=== PATIENT | male | born 1985 | race Caucasian/White ===

== ENCOUNTER 2019-03-01 02:06 | Observation (INO) | payer OTHER ==
[2019-03-01] VITALS (10 sets, daily range): BP systolic 109–128; BP diastolic 72–91
[~2019-03-01 02:06] MED LIST: DIPH-1 PO; NO MEDS; ONDA8TAB98 PO; PER PO
[2019-03-01] MEDS ORDERED: MULT1CAP59 PO (02:17)
--- NOTE | 2019-03-01 02:19 | ER Report ---
History and Physical Time Seen By MD: 02:19 Hx. of Stated Complaint: PATIENT HAVING PAIN IN LEFT LOWER QUADRANT, FEELS LIKE THE LAST TIME HE HAD A BOWEL OBSTRUCTION. PATIENT DENIES ANY N/V/D. HPI/ROS CHIEF COMPLAINT: left lower abdominal pain. HISTORY OF PRESENT ILLNESS: This is a 34 year old male. He has onset of left lower abdominal pain tonight. Feels like when he has had an obstruction with volvulus in the past. Has had this many times since a teenager. Has had it endoscopic reversed in the past, and then later had surgery here with sigmoidectomy and sounds like a cecectomy as well, Dr. Fuller in 2011. Has a bout 4 bowel movements daily, the last 24 hours has been reduced. No nausea or vomiting. The pain is colicky and comes and goes. Nothing makes it worse or better. Denies dysuria or trouble with urination. No fevers or chills noted. Some pain into the left lower back area. When the pain does come on it is severe, rated about 7 on 1-10 scale. Allergies: Coded Allergies: No Known Drug Allergies (Unverified , 03/01/19) Home Meds Reported Medications Multivitamin (MULTIVITAMINS) 1 Each Capsule, 1 EACH PO QDAY, CAPSULE 03/01/19 Discontinued Reported Medications [No Meds] No Conflict Check 12/02/11 Discontinued Scripts Diphenoxylate Hcl/Atropine (LOMOTIL TABLET) 1 Each Tablet, 1 EACH PO Q8H, #10 Prov:VITALY GUTIERRES DO 03/01/14 Ondansetron (ONDANSETRON ODT) 8 Mg Tab.rapdis, 8 MG PO Q12H, #10 Prov:VITALY GUTIERRES DO 03/01/14 Reviewed Nurses Notes: Yes Hx Smoking: No Smoking Status: Never Smoker Hx Substance Use Disorder: No Hx Alcohol Use: Yes (OCC) Constitutional Vital Sign - Last 24 Hours 03/01/19 03/01/19 03/01/19 03/01/19 02:10 02:14 02:21 02:30 Temp 98.2 Pulse 95 83 Resp 24 B/P (MAP) 130/93 130/93 (105) 129/90 (103) Pulse Ox 93 96 O2 Delivery Room Air 03/01/19 03/01/19 03/01/19 03/01/19 02:36 02:52 03:00 03:06 Pulse 79 79 B/P (MAP) 132/90 (104) 121/91 (101) Pulse Ox 91 89 03/01/19 03/01/19 03/01/19 03/01/19 03:30 03:36 03:51 03:56 Pulse 73 87 89 B/P (MAP) 113/64 (80) Pulse Ox 92 91 94 03/01/19 03/01/19 03/01/19 03/01/19 04:00 04:11 04:26 04:30 Pulse 92 94 B/P (MAP) 126/75 (92) 122/84 (97) Pulse Ox 88 87 03/01/19 04:41 Pulse 96 Pulse Ox 94 l Intake and Output 02/28/19 02/28/19 03/01/19 15:00 23:00 07:00 Intake Total 1000 ml Balance 1000 ml Physical Exam General Appearance: The patient is alert. No acute distress. Eyes: Pupils are equal, round. No pallor, injection or icterus. ENT: Mucous membranes are moist. Respiratory: Lungs are clear to auscultation. Cardiovascular: Regular rate and rhythm. No murmurs, gallops or rubs. Gastrointestinal: Abdomen is soft, minimal pain with percussion, not able to reproduce the pain. Nondistended. hypoactive bowel sounds on my exam. No costovertebral angle tenderness with percussion. Neurological: Alert and oriented x3. Skin: Warm and dry. Musculoskeletal: No tenderness in palpation of the back and area around lumbar spine. DIFFERENTIAL DIAGNOSIS: After history and physical exam, differential diagnosis was considered for a patient with left lower abdominal pain that could be recurrent volvulus versus other inflammatory condition of the bowels such as colitis or enteritis, or could be urinary tract related such as infection or kidney stone Medical Decision Making Data Points Result Diagram: 03/01/19 0214 03/01/19 021 Laboratory Hematology Test 03/01/19 02:09 03/01/19 02:14 03/01/19 03:58 Urine Color Yellow Urine Clarity Clear Urine pH 6.0 pH (4.8-9.5) Urine Specific [place] 1.011 Urine Protein Negative mg/dL (NEGATIVE) Urine Glucose (UA) Negative mg/dL (NEGATIVE) Urine Ketones Negative mg/dL (NEGATIVE) Urine Blood Negative (NEGATIVE) Urine Nitrite Negative (NEGATIVE) Urine Bilirubin Negative (NEGATIVE) Urine Urobilinogen Negative mg/dL (0.2-1.9) Urine Leukocyte Esterase Negative (NEGATIVE) Urine RBC 1 /HPF (0-2/HPF) Urine WBC None /HPF (0-5/HPF) Urine Squamous Epithelial Cells None /LPF (</=FEW) Urine Bacteria Negative /HPF (NONE-FEW) Urine Mucus None /HPF (NONE-FEW) Red Blood Count 5.42 M/uL (4.00-5.60) Mean Corpuscular Volume 93.1 fL (80.0-96.0) Mean Corpuscular Hemoglobin 32.3 pg (26.0-33.0) Mean Corpuscular Hemoglobin Concent 34.6 g/dL (32.0-36.0) Red Cell Distribution Width 12.6 % (11.5-14.5) Mean Platelet Volume 7.0 fL (7.2-11.1) Neutrophils (%) (Auto) 69.7 % (39.4-72.5) Lymphocytes (%) (Auto) 22.0 % (17.6-49.6) Monocytes (%) (Auto) 6.8 % (4.1-12.4) Eosinophils (%) (Auto) 1.0 % (0.4-6.7) Basophils (%) (Auto) 0.5 % (0.3-1.4) Nucleated RBC Relative Count (auto) 0.0 /100WBC Neutrophils # (Auto) 6.3 K/uL (2.0-7.4) Lymphocytes # (Auto) 2.0 K/uL (1.3-3.6) Monocytes # (Auto) 0.6 K/uL (0.3-1.0) Eosinophils # (Auto) 0.1 K/uL (0.0-0.5) Basophils # (Auto) 0.0 K/uL (0.0-0.1) Nucleated RBC Absolute Count (auto) 0.00 K/uL Sodium Level 139 mmol/L (137-145) Potassium Level 3.9 mmol/L (3.5-5.0) Chloride Level 100 mmol/L (98-107) Carbon Dioxide Level 29 mmol/L (22-30) Blood Urea Nitrogen 12 mg/dl (9-21) Creatinine 1.10 mg/dl (0.66-1.25) Glomerular Filtration Rate Calc > 60.0 Random Glucose 98 mg/dl (75-110) Calcium Level 9.4 mg/dl (8.4-10.2) Total Bilirubin 1.4 mg/dl (0.2-1.3) Aspartate Amino Transf (AST/SGOT) 21 U/L (0-35) Alanine Aminotransferase (ALT/SGPT) 23 U/L (0-56) Alkaline Phosphatase 60 U/L (0-126) Total Protein 7.5 g/dl (6.3-8.2) Albumin 4.7 g/dl (3.5-5.0) Amylase Level 68 U/L (0-110) Lipase 172 U/L (23-300) Lactate 1.0 mmol/L (0.7-2.1) Chemistry Test 03/01/19 02:09 03/01/19 02:14 03/01/19 03:58 Urine Color Yellow Urine Clarity Clear Urine pH 6.0 pH (4.8-9.5) Urine Specific [place] 1.011 Urine Protein Negative mg/dL (NEGATIVE) Urine Glucose (UA) Negative mg/dL (NEGATIVE) Urine Ketones Negative mg/dL (NEGATIVE) Urine Blood Negative (NEGATIVE) Urine Nitrite Negative (NEGATIVE) Urine Bilirubin Negative (NEGATIVE) Urine Urobilinogen Negative mg/dL (0.2-1.9) Urine Leukocyte Esterase Negative (NEGATIVE) Urine RBC 1 /HPF (0-2/HPF) Urine WBC None /HPF (0-5/HPF) Urine Squamous Epithelial Cells None /LPF (</=FEW) Urine Bacteria Negative /HPF (NONE-FEW) Urine Mucus None /HPF (NONE-FEW) White Blood Count 9.0 k/uL (4.5-11.0) Red Blood Count 5.42 M/uL (4.00-5.60) Hemoglobin 17.5 g/dL (14.0-18.0) Hematocrit 50.5 % (42.0-52.0) Mean Corpuscular Volume 93.1 fL (80.0-96.0) Mean Corpuscular Hemoglobin 32.3 pg (26.0-33.0) Mean Corpuscular Hemoglobin Concent 34.6 g/dL (32.0-36.0) Red Cell Distribution Width 12.6 % (11.5-14.5) Platelet Count 282 K/uL (150-450) Mean Platelet Volume 7.0 fL (7.2-11.1) Neutrophils (%) (Auto) 69.7 % (39.4-72.5) Lymphocytes (%) (Auto) 22.0 % (17.6-49.6) Monocytes (%) (Auto) 6.8 % (4.1-12.4) Eosinophils (%) (Auto) 1.0 % (0.4-6.7) Basophils (%) (Auto) 0.5 % (0.3-1.4) Nucleated RBC Relative Count (auto) 0.0 /100WBC Neutrophils # (Auto) 6.3 K/uL (2.0-7.4) Lymphocytes # (Auto) 2.0 K/uL (1.3-3.6) Monocytes # (Auto) 0.6 K/uL (0.3-1.0) Eosinophils # (Auto) 0.1 K/uL (0.0-0.5) Basophils # (Auto) 0.0 K/uL (0.0-0.1) Nucleated RBC Absolute Count (auto) 0.00 K/uL Glomerular Filtration Rate Calc > 60.0 Calcium Level 9.4 mg/dl (8.4-10.2) Total Bilirubin 1.4 mg/dl (0.2-1.3) Aspartate Amino Transf (AST/SGOT) 21 U/L (0-35) Alanine Aminotransferase (ALT/SGPT) 23 U/L (0-56) Alkaline Phosphatase 60 U/L (0-126) Total Protein 7.5 g/dl (6.3-8.2) Albumin 4.7 g/dl (3.5-5.0) Amylase Level 68 U/L (0-110) Lipase 172 U/L (23-300) Lactate 1.0 mmol/L (0.7-2.1) Urinalysis Test 03/01/19 02:09 Urine Color Yellow Urine Clarity Clear Urine pH 6.0 pH (4.8-9.5) Urine Specific [place] 1.011 Urine Protein Negative mg/dL (NEGATIVE) Urine Glucose (UA) Negative mg/dL (NEGATIVE) Urine Ketones Negative mg/dL (NEGATIVE) Urine Blood Negative (NEGATIVE) Urine Nitrite Negative (NEGATIVE) Urine Bilirubin Negative (NEGATIVE) Urine Urobilinogen Negative mg/dL (0.2-1.9) Urine Leukocyte Esterase Negative (NEGATIVE) Urine RBC 1 /HPF (0-2/HPF) Urine WBC None /HPF (0-5/HPF) Urine Squamous Epithelial Cells None /LPF (</=FEW) Urine Bacteria Negative /HPF (NONE-FEW) Urine Mucus None /HPF (NONE-FEW) EKG/Imaging Imaging COMPUTED TOMOGRAPHY ABDOMEN AND PELVIS WITH INTRAVENOUS CONTRAST DATE OF EXAM: 03/01/2019 2:25 AM INDICATION: Left-sided abdominal pain and back pain. COMPARISON: Report from CT abdomen and pelvis 01/31/2007. Images not available at the time of dictation. Most recent radiographic comparison dated 12/31/2011 TECHNIQUE: Contrast enhanced abdomen and pelvis CT performed during the injection of 75 ml of Isovue 370. Sagittal and coronal reconstructions were performed. One of the following dose optimization techniques was utilized in the performance of this exam: Automated exposure control; adjustment of the mA and/or kV according to the patient's size; or use of an iterative reconstruction technique. Specific details can be referenced in the facility's radiology CT exam operational policy. FINDINGS: Lung bases: Minimal atelectasis. Liver and hepatic vasculature: Normal. Gallbladder and bile ducts: Normal. Spleen: Normal. Pancreas: Normal. Adrenals: Normal. Kidneys, ureters and bladder: Normal. Retroperitoneum and aorta: Normal caliber aorta. No retroperitoneal adenopathy. GI tract, mesentery and peritoneum: There is a volvulus involving the descending/sigmoid colon with marked dilation of the involved loop measuring up to 11.6 cm in diameter. The transition point can be seen with swirling of bowel and fat the left midabdomen on image 153 series 2. There is associated mesenteric edema. No definite pneumatosis or pneumoperitoneum. Associated dilation of the upstream colon and small bowel. Prostate and seminal vesicles: Normal. Bones and soft tissues: No acute abnormality or suspicious lesion. IMPRESSION: Apparent recurrence volvulus involving the descending and sigmoid colon with associated upstream obstruction. There is mesenteric edema at the site of the twisting, but no apparent pneumatosis or pneumoperitoneum. Dr. Mcintyre discussed this case with ROBBIE VILLASENOR on 03/01/2019 3:29 AM. Report Dictated By: Francis Mcintyre MD at 03/01/2019 3:07 AM ED Course/Re-evaluation Clinical Indication for ER IV: Hydration, IV Access ED Course Gave a liter or normal saline, 4mg of Morphine and 4mg of Zofran IV to help with symptoms, but no real change. CT scan done and shows recurrent volvulus. Labs unremarkable, lactate pending. Discussed with Dr. Dimas, general surgery, who came to the ER and took the patient to surgery Decision to Disposition Date: March 01, 2019 Decision to Disposition Time: 03:54 Depart Departure Latest Vital Signs Vital Signs Date Time Temp Pulse Resp B/P (MAP) Pulse Ox O2 Delivery O2 Flow Rate FiO2 03/01/19 04:41 96 94 03/01/19 04:30 122/84 (97) 03/01/19 02:10 98.2 24 Room Air Impression: Primary Impression: Volvulus Condition: Condition Unchanged Disposition: ADMIT FROM ER TO OR ROBBIE VILLASENOR MD March 01, 2019 02:19
[2019-03-01] MEDS ORDERED: NS(*) 0.9% 1000 ML BAG 1,000 ML IV ONE (02:25)
[2019-03-01] MEDS ORDERED: ONDANSETRON 4 MG/2 ML VIAL IVP ONE (02:25)
[2019-03-01] MEDS ORDERED: MORPHINE 4 MG/ML SDV IVP ONE (02:25)
[2019-03-01] MEDS ORDERED: IOPAMIDOL 76% 150 ML INFUS BTL 150 ML ONE (02:42)
[2019-03-01 02:49] LABS: PLATELET COUNT, AUTOMATED 282 K/uL (150-450)
--- NOTE | 2019-03-01 03:33 | RADIOLOGY IMAGING REPORT ---
FACILITY: [facility] PATIENT NAME: Ez Smith : 1985 MR: [id number] V: [id number] EXAM DATE: ORDERING PHYSICIAN: ROBBIE VILLASENOR TECHNOLOGIST: Location: [facility] Patient: Ez Smith : 1985 Visit/Account:[id number] Date of Sevice: 03/01/2019 COMPUTED TOMOGRAPHY ABDOMEN AND PELVIS WITH INTRAVENOUS CONTRAST DATE OF EXAM: 03/01/2019 2:25 AM INDICATION: Left-sided abdominal pain and back pain. COMPARISON: Report from CT abdomen and pelvis 01/31/2007. Images not available at the time of dictatio n. Most recent radiographic comparison dated 12/31/2011 TECHNIQUE: Contrast enhanced abdomen and pelvis CT performed during the injection of 75 ml of Isovue 370. Sagittal and coronal reconstructions were performed. One of the following dose optimization te chniques was utilized in the performance of this exam: Automated exposure control; adjustment of the mA and/or kV according to the patient's size; or use of an iterative reconstruction technique. Spec [facility] details can be referenced in the facility's radiology CT exam operational policy. FINDINGS: Lung bases: Minimal atelectasis. Liver and hepatic vasculature: Normal. Gallbladder and bile ducts: Normal. Spleen: Normal. Pancreas: Normal. Adrenals: Normal. Kidneys, ureters and bladder: Normal. Retroperitoneum and aorta: Normal caliber aorta. No retroperitoneal adenopathy. GI tract, mesentery and peritoneum: There is a volvulus involving the descending/sigmoid colon with marked dilation of the involved loop measuring up to 11.6 cm in diameter. The transition point can b e seen with swirling of bowel and fat the left midabdomen on image 153 series 2. There is associated mesenteric edema. No definite pneumatosis or pneumoperitoneum. Associated dilation of the upstream colon and small bowel. Prostate and seminal vesicles: Normal. Bones and soft tissues: No acute abnormality or suspicious lesion. IMPRESSION: Apparent recurrence volvulus involving the descending and sigmoid colon with associated u pstream obstruction. There is mesenteric edema at the site of the twisting, but no apparent pneumato sis or pneumoperitoneum. Dr. Mcintyre discussed this case with ROBBIE VILLASENOR on 03/01/2019 3:29 AM. Report Dictated By: Francis Mcintyre MD at 03/01/2019 3:07 AM Report E-Signed By: Francis Mcintyre MD at 03/01/2019 3:29 AM WSN:[id number]
[2019-03-01] MEDS ORDERED: HYDROMORPHONE HCL 1 MG/ML SYRINGE IVP ONE ×2 (03:45→04:25)
[2019-03-01] MEDS ORDERED: ceFAZolin(*) 2GM/D5W 50ML 50 ML IVPB ONE (04:50)
[2019-03-01] MEDS ORDERED: FAMOTIDINE(*) 20MG/50ML PREMIX 50 ML IVPB ONE (04:50)
[2019-03-01] MEDS ORDERED: NORMOSOL R SOLN(*) 1000 ML BAG 1,000 ML IV ONE (04:50)
[2019-03-01] MEDS ORDERED: metroNIDAZOLE* 500MG/100ML BAG 100 ML IVPB ONE (04:50)
[2019-03-01] MEDS ORDERED: ONDANSETRON 4 MG/2 ML VIAL ONE (05:32)
[2019-03-01] MEDS ORDERED: LIDOCAINE MPF 1% 5 ML VIAL ONE (05:32)
[2019-03-01] MEDS ORDERED: PROPOFOL EMUL(*) 10MG/ML 20 ML 20 ML ONE (05:32)
[2019-03-01] MEDS ORDERED: SUGAMMADEX SOD 200 MG/2 ML SDV ONE (05:32)
[2019-03-01] MEDS ORDERED: DEXAMETHASONE SOD 4 MG/ML VIAL ONE (05:32)
[2019-03-01] MEDS ORDERED: ROCURONIUM BROM 10 MG/ML 10 ML ONE (05:32)
[2019-03-01] MEDS ORDERED: fentaNYL CITR 250 MCG/5 ML AMP ONE (05:33)
[2019-03-01] MEDS ORDERED: KETAMINE HCL 200 MG/20 ML MDV ONE (05:34)
[2019-03-01] MEDS ORDERED: BUPIV/EPI 0.25% 1:200,000 50ML INFIL ONE (05:36)
[2019-03-01] MEDS ORDERED: HYDROmorphone HCL 2 MG/ML SDV IVP PRN (07:15)
[2019-03-01] MEDS ORDERED: ONDANSETRON 4 MG/2 ML VIAL IVP PRN (07:15)
[2019-03-01] MEDS ORDERED: NS(*) 0.9% 1000 ML BAG 1,000 ML IV SCH (07:30)
--- NOTE | 2019-03-01 07:58 | Post Operative Progress Note ---
Post Operative Progress Note Surgeon: dr. gisela bernal #[id number] Director Process Improvement: none Anesthesia: gen dr. hernandez Pre-Op Diagnosis: sigmoid volvulus Post-Op Diagnosis: same Findings: dilated colon Procedure(s): decompression with sigmoidoscope Complications: none Estimated Blood Loss: none BHARATH BERNAL March 01, 2019 07:58
--- NOTE | 2019-03-01 08:13 | RADIOLOGY IMAGING REPORT ---
FACILITY: [facility] [place] PATIENT NAME: Ez Smith : 1985 MR: [id number] V: [id number] EXAM DATE: ORDERING PHYSICIAN: BHARATH SNYDER TECHNOLOGIST: Location: Patient: zE Smith : 1985 Visit/Account:[id number] Date of Sevice: 03/01/2019 Technique: KUB SINGLE VIEW ABDOMEN HISTORY: VOLVULUS Comparison studies: 03/01/2019 FINDINGS: Gaseous dilated loops of bowel are again noted. There is incomplete visualization of the u pper abdomen. Moderate colonic stool content is again identified. No abnormal calcifications. Cont rast is seen within the urinary bladder. IMPRESSION: 1. Gaseous dilated loops of bowel in the setting of a suspected volvulus on cross-sectional imaging. This is not significantly changed. Report Dictated By: Bill Dias DO at 03/01/2019 8:07 AM Report E-Signed By: Bill Dias DO at 03/01/2019 8:09 AM WSN:[id number]
--- NOTE | 2019-03-01 08:35 | OPERATIVE REPORT 1 ---
EVENT DATE: March 01, 2019 SURGEON: Girish Dimas MD ANESTHESIOLOGIST: Jean Ramirez MD ANESTHESIA: General. WRITING CENTER DIRECTOR: None. PREOPERATIVE DIAGNOSIS Sigmoid volvulus. POSTOPERATIVE DIAGNOSIS Sigmoid volvulus. PROCEDURE PERFORMED Decompression with sigmoidoscope. ESTIMATED BLOOD LOSS None. SPECIMENS None. COMPLICATIONS None. INDICATIONS This is a 34-year old male with a history of sigmoid volvulus. She has had partial colon resection twice for sigmoid volvulus. He began having pain yesterday on the left side of his abdomen. On physical exam, patient was stable. He was distended. His abdomen was soft. Risks and benefits of the procedure were explained and consent was signed. DESCRIPTION OF PROCEDURE The patient was taken to the operating room and placed in the supine position. General anesthesia was administered per the Anesthesia Team. Patient was placed in the frogleg position. A perianal exam and digital rectal exam were unremarkable. The colonoscope was advanced into the anus and into the sigmoid under direct vision. There was stool in the colon, making it somewhat difficult to visualize. However, I was able to pass the colonoscope into the sigmoid colon. This was dilated. I then continued advancing the scope. I believe I advanced it at least to the hepatic flexure. However, it is possible it was only the splenic flexure. I did see non-dilated colon proximally to the dilated colon. The colonoscope was slowly withdrawn. Air was suctioned as I withdrew the scope. The mucosa was healthy and viable. While I did notice nondilated versus dilated areas, I did not see definitive twisting of the colon. I then withdrew the colonoscope from the sigmoid colon and rectum, suctioning air as I withdrew the scope. Patient tolerated the procedure well and no complications. [facility]
[2019-03-01] MEDS ORDERED: DIATRIZOATE MEGL/DIATRIZOA SOD 120 ML SOLN PO ONE (10:34)
--- NOTE | 2019-03-01 12:14 | RADIOLOGY IMAGING REPORT ---
FACILITY: [facility] PATIENT NAME: Ez Smith : 1985 MR: [id number] V: [id number] EXAM DATE: ORDERING PHYSICIAN: BHARATH SNYDER TECHNOLOGIST: Location: [facility] Patient: Ez Smith : 1985 Visit/Account:[id number] Date of Sevice: 03/01/2019 Exam type: BARIUM ENEMA History: voluvulus, s/p decompression Comparison: CT of abdomen and pelvis performed earlier in the day. Findings: A 50% dilute Gastrografin suspension was instilled into the colon via the rectum the usual retrograde fashion. The descending and sigmoid colon are moderately distended. A large amount of fecal materi al seen throughout the entire colon. Gastrografin was advanced to what appeared to be the cecum. No definite reflux was obtained into the terminal ileum. There is no evidence of a sigmoid volvulus at this time. The postevacuation toward images did demonstrate a large amount of remaining fecal mater ial in the colon. The dose area product was 5238.84 micro-Green per meter squared IMPRESSION: 1. No evidence of a recurrent sigmoid volvulus at this time Large amount of retained fecal material remains in the colon Report Dictated By: Shireen Ziegler MD at 03/01/2019 12:08 PM Report E-Signed By: Shireen Ziegler MD at 03/01/2019 12:12 PM WSN:[id number]
--- NOTE | 2019-03-01 16:11 | Hospitalist Depart ---
Discharge Summary Reason for Hosp/Final Diag: (1) Volvulus Status: Acute Hospital Course & Plan: 34 yo male with h/o sigmoid volvulus and bowel resection presented with recurrent volvulus. this was decompressed with si gmoidoscopy. gastrografin enema confirmed resolution. multiple bms. no colonoscopy in the past. i discussed options with pt. will d/c home. colonoscopy then partial colectomy in near future after bowel returns to more normal caliber. pt was given er precautions. Departure Weight (Pounds): 198 Weight (Ounces): 8.0 Result Diagram: 03/01/1921303/01/19213 Condition: Improved Discharge Instructions Home Meds Reported Medications Multivitamin (MULTIVITAMINS) 1 Each Capsule, 1 EACH PO QDAY, CAPSULE 03/01/19 Discontinued Reported Medications [No Meds] No Conflict Check 12/02/11 Discontinued Scripts Diphenoxylate Hcl/Atropine (LOMOTIL TABLET) 1 Each Tablet, 1 EACH PO Q8H, #10 Prov:VITALY GUTIERRES DO 03/01/14 Ondansetron (ONDANSETRON ODT) 8 Mg Tab.rapdis, 8 MG PO Q12H, #10 Prov:VITALY GUTIERRES DO 03/01/14 Diet: Regular Activity: As Tolerated Special Instructions: we will schedule colonoscopy for you. call me ([phone]) or go to er for any worsening in condition. Venous Thromboembolism Antithrombotics Is Pt On Any Antithrombotics?: No BHARATH SNYDER March 01, 2019 16:11
== END 2019-03-01 15:57 | disposition home or self-care (01) ==
LOC: ER 02:35 → OR 04:51 → MED 07:55
PROVIDERS: ADMIT Surgery; ATTEND Surgery
DX: K56.2 Volvulus (principal)
CPT/HCPCS: 45337; 74018; 74177; 74270; 81001; 82150; 83605; 83690; 85025; 96361; 96365; 96366; 96375; 99284; G0378; J1100; J1170; J2001; J2270; J2405; J2704; J3010; J3490; J7030; Q9967; 82040; 82247; 82310; 82374; 82435; 82565; 82947; 84075; 84132; 84155; 84295; 84450; 84460; 84520; J0690

== ENCOUNTER 2019-03-14 01:03 | Day surgery (SDC) | payer OTHER ==
[~2019-03-14] VITALS: Ht 182.9 cm; Wt 81.2 kg
[~2019-03-14 01:03] MED LIST changes: +MULT1CAP59 PO
[2019-03-14] MEDS ORDERED: PROPOFOL EMUL(*) 10MG/ML 20 ML 40 ML ONE (07:07)
[2019-03-14] MEDS ORDERED: LIDOCAINE MPF 1% 5 ML VIAL ONE (07:07)
[2019-03-14] MEDS ORDERED: NORMOSOL R SOLN(*) 1000 ML BAG 1,000 ML IV PRN (07:55)
[2019-03-14] MEDS ORDERED: LIDOCAINE/SOD BICARB 8.4% SYR ID ONE (07:55)
[2019-03-14 08:42] VITALS: BP 123/95
[2019-03-14 09:06] VITALS: BP 101/72
--- NOTE | 2019-03-14 09:20 | Short(Outpt) Discharge Summary ---
Discharge Summary Reason for Hosp/Final Diag: (1) Volvulus Status: Acute Hospital Course & Plan: pt presented for colonoscopy. he tolerated the procedure well. he will be discharged home when criteria met. Departure Discharge to: Home Discharge Instructions Home Meds Reported Medications Multivitamin (MULTIVITAMINS) 1 Each Capsule, 1 EACH PO QDAY, CAPSULE 03/01/19 Diet: Regular Activity: As Tolerated Special Instructions: repeat colonoscopy at age 48 BHARATH SNYDER March 14, 2019 09:20
[2019-03-14 09:23] VITALS: BP 109/70
[2019-03-14 09:41] VITALS: BP 110/85
[2019-03-14 09:42] VITALS: BP 107/84
== END 2019-03-14 10:07 | disposition home or self-care (01) ==
LOC: OR 01:03
PROVIDERS: ATTEND Surgery
DX: K56.2 Volvulus (principal)
CPT/HCPCS: 00811; 45378; J2001; J2704

== ENCOUNTER 2019-04-18 00:27 | Inpatient (IN) | payer OTHER ==
[2019-04-18] VITALS (12 sets, daily range): BP systolic 97–133; BP diastolic 66–87
[~2019-04-18] VITALS: Ht 182.9 cm; Wt 81.2 kg
[2019-04-18] MEDS ORDERED: PREGABALIN 150 MG CAPSULE PO ONE (07:25)
[2019-04-18] MEDS ORDERED: fentaNYL CITR 250 MCG/5 ML AMP ONE (07:45)
[2019-04-18] MEDS ORDERED: DEXAMETHASONE SOD PHOS 10MG/ML ONE (07:46)
[2019-04-18] MEDS ORDERED: LIDOCAINE MPF 1% 5 ML VIAL ONE (07:46)
[2019-04-18] MEDS ORDERED: ONDANSETRON 4 MG/2 ML VIAL ONE (07:46)
[2019-04-18] MEDS ORDERED: PROPOFOL EMUL(*) 10MG/ML 20 ML 20 ML ONE (07:46)
[2019-04-18] MEDS ORDERED: KETAMINE HCL 200 MG/20 ML MDV ONE ×2 (07:47→12:00)
[2019-04-18] MEDS ORDERED: SUGAMMADEX SOD 200 MG/2 ML SDV ONE (07:49)
[2019-04-18] MEDS ORDERED: ACETAMINOPHEN(*)1000 MG/100 ML 100 ML IVPB ONE (08:02)
[2019-04-18] MEDS ORDERED: LEVOFLOXACIN/D5W*500 MG/100 ML 100 ML IVPB ONE (10:00)
[2019-04-18] MEDS ORDERED: FAMOTIDINE 20 MG TAB PO ONE (10:00)
[2019-04-18] MEDS ORDERED: LIDOCAINE/SOD BICARB 8.4% SYR ID ONE (10:00)
[2019-04-18] MEDS ORDERED: MIDAZOLAM 2 MG/2 ML VIAL IVP PRN (10:00)
[2019-04-18] MEDS ORDERED: NORMOSOL R SOLN(*) 1000 ML BAG 1,000 ML IV PRN (10:00)
[2019-04-18] MEDS ORDERED: metroNIDAZOLE* 500MG/100ML BAG 100 ML IVPB ONE (10:00)
[2019-04-18] MEDS ORDERED: fentaNYL CITR 100 MCG/2 ML AMP ONE ×6 (12:43→14:43)
[2019-04-18] MEDS ORDERED: HYDROmorphone HCL 2 MG/ML SDV ONE (13:27)
[2019-04-18] MEDS ORDERED: HYDROmorphone HCL 2 MG/ML SDV IVP PRN (14:10)
[2019-04-18] MEDS ORDERED: APAP/HYDROCODONE 325/7.5 TAB PO PRN (14:10)
--- NOTE | 2019-04-18 14:56 | Post Operative Progress Note ---
Post Operative Progress Note Date: Apr 18, 2019 Time: 14:47 Surgeon: dr. gisela bernal #[id number] Grinder Set Up Operator Jig: dr. jose rapp Anesthesia: gen, local dr. cummins Pre-Op Diagnosis: colon volvulus Post-Op Diagnosis: same Findings: redundant, dilated colon Procedure(s): laparoscopic partial colectomy Specimen Removed:(May be N/A): portion of transverse and descending colon Complications: none Fluids: iv crystalloid Estimated Blood Loss: minimal Date OP Note Dictated: Apr 18, 2019 Time OP Note Dictated: 14:49 BHARATH BERNAL Apr 18, 2019 14:56
--- NOTE | 2019-04-18 16:56 | OPERATIVE REPORT 1 ---
EVENT DATE: April 18, 2019 SURGEON: Girish Dimas MD ANESTHESIOLOGIST: Woodrow Heard MD ANESTHESIA: General and local. LOBBYIST: Omkar Fuller MD PREOPERATIVE DIAGNOSIS Colon volvulus. POSTOPERATIVE DIAGNOSIS Colon volvulus. PROCEDURE PERFORMED Laparoscopic partial colectomy. FLUIDS IV crystalloid. ESTIMATED BLOOD LOSS Minimal. SPECIMENS Portion of transverse and descending colon. COMPLICATIONS None. INDICATIONS This is a 34-year-old male who has had partial colectomies in the past due to volvulus. Patient recently presented with volvulus that was identified to be in the area of the descending/sigmoid colon on imaging. Patient also has a dilated colon in this area. Risks and benefits of the procedure were explained, and consent was signed. DESCRIPTION OF PROCEDURE Patient was taken to the operating room and placed in the supine position. General anesthesia was administered per anesthesia team. Patient was prepped and draped in normal sterile fashion. Local analgesia was injected into the dermis below the right costal margin, and a small incision was made. Optiview technique was used to easily enter the abdomen. Pneumoperitoneum was achieved. After injecting local analgesia under direct vision, a 5 mm supraumbilical port was placed, followed by two 5 mm left-sided ports. I inspected the abdomen. There was no injury upon entry. At the splenic flexure, the patient had redundant dilated colon. This was the likely source of his volvulus. The right colon did not appear to have much potential to volvulize. The descending colon was mobilized by dissecting along the white line of Toldt. Splenic flexure was taken down, and this portion of the colon was mobilized medially. After this portion was completely mobilized, I made a left upper quadrant incision. Abdomen was entered just lateral to the rectus muscle on the left. The wound protector was placed. Splenic flexure was withdrawn through the wound protector. The mesentery was divided with LigaSure. The redundant colon was removed using REN blue loads. A [id number] anastomosis was then performed by placing silk stay sutures, creating a colotomies and firing a 75 mm blue load to create a common colotomy. Closure of the common opening was done with running 3-0 PDS stitch, followed by 2-0 silk Lembert stitches. The anastomosis was dunked back into the abdomen. The wound protector was removed. The fascia was closed in three layers with 0 PDS running stitches. Wound was irrigated, and the skin was approximated with fito. The other incisions were closed with Monocryl subcuticular stitches. More local analgesia was injected. Appropriate dressings were applied. Patient tolerated the procedure well. There were no complications. ABDI
[2019-04-18] MEDS: KETOROLAC 30 MG/ML VIAL IVP SCH (17:45)
[2019-04-18] MEDS: GABAPENTIN 300 MG CAP PO SCH (21:24)
[2019-04-19] MEDS: KETOROLAC 30 MG/ML VIAL IVP SCH ×5 (00:25→23:50)
[2019-04-19 03:52] VITALS: BP 106/70
[2019-04-19 06:02] LABS: PLATELET COUNT, AUTOMATED 212 K/uL (150-450)
[2019-04-19 07:43] VITALS: BP 110/67
--- NOTE | 2019-04-19 08:04 | General Surgery Progress Note ---
Subjective Progress Notes Subjective doing well. some blood and gas per rectum. pain is 3/10. large amount of urine output. drinking clears well. Physical Exam Vital Signs Date Time Temp Pulse Resp B/P (MAP) Pulse Ox O2 Delivery O2 Flow Rate FiO2 04/19/19 07:46 97.8 04/19/19 07:43 75 110/67 (81) 94 04/19/19 03:52 16 Nasal Cannula 0.5 Intake and Output 04/19/19 07:01 Intake Total 2300 ml Output Total 2500 ml Balance -200 ml Intake Oral 500 ml IV Total 1800 ml Output Urine Total 2500 ml # Bowel Movements 0 General Appearance: No Acute Distress Cardiovascular: Other (reg rate) GI: Other (abd soft) Result Diagram: 04/19/19 0532 04/19/19 0532 Assessment and Plan Problems: (1) Volvulus Status: Acute Assessment & Plan: 04/19/19: doing well. no ivf needed. d/c hodge. advance diet. ambulate. Exam Sepsis Risk: No Definite Risk BHARATH SNYDER Apr 19, 2019 08:04
[2019-04-19] MEDS: ENOXAPARIN 40 MG/0.4ML SYR SC SCH (08:53)
[2019-04-19] MEDS: GABAPENTIN 300 MG CAP PO SCH ×2 (08:53→20:33)
[2019-04-19 10:14] VITALS: BP 117/79
--- NOTE | 2019-04-19 11:47 | Medical Nutrition Therapy ---
Nutrition Anthropometrics Height (Inches): 72.00 Height (Calculated Centimeters: 182.241603 Weight (Pounds): 179 Weight (Calculated Kilograms): 81.193 BMI: 24.3 Leander Nutrition Score: Adequate Leander Nutrition Risk Score: 19 Dietary Referral Nutrition Risk Factors: Nutrition Risk Comment: Physical Findings Physical Appearance: Normal BMI Range Skin Appearance Skin Appearance: Edema Edema Location Modifier: Edema Location: Type of Edema: Degree of Edema: Gastrointestinal Symptoms GI Symtoms: Tube Present: Bowel Sounds: Recent Bowel Pattern: Stool Characteristics: Liquid Nutrition/Food History Good Nutritional Diagnosis Nutritional Risk Acuity 4: Good Appetite Nutritional Acuity: 4-Low Energy Requirement: 2407 (HBE AF 1.3) Protein Requirement: 81 (1g/kg) Fluid Requirement: 2407 (1mL/kcal) Nutrition Monitoring & Eval Nutrition Goals: Eat 75-100% Meal Nutrition Follow-Up: Good Intake RD Patient Assessment Time: [address] Assessment Type: RD Assessment Patient Nutrition Acuity: 4-Low Follow Up Date: Apr 26, 2019 Nutritional Comment: 04/19/19-Pt s/p partial colectomy. On medical liquid/GI soft diet. Pt reports eating has been going well, no concerns. Discussed easy to digest foods low in fiber high in protein.CHRISTOPHER QUEVEDO Apr 19, 2019 11:47
[2019-04-19] MEDS: ONDANSETRON 4 MG TAB PO PRN ×2 (12:41→22:47)
[2019-04-19 16:30] VITALS: BP 115/72
[2019-04-19 18:42] VITALS: BP 118/85
[2019-04-19] MEDS: PROMETHAZINE 25 MG/ML 1 ML AMP IVP PRN (19:19)
[2019-04-19 23:44] VITALS: BP 128/91
[2019-04-20] MEDS: PROMETHAZINE 25 MG/ML 1 ML AMP IVP PRN ×4 (01:19→15:55)
[2019-04-20 02:53] VITALS: BP 114/92
[2019-04-20] MEDS ORDERED: NS(*) 0.9% 1000 ML BAG 1,000 ML IV PRN (05:10)
[2019-04-20] MEDS: KETOROLAC 30 MG/ML VIAL IVP SCH ×3 (05:48→18:00)
[2019-04-20 06:57] VITALS: BP 128/95
[2019-04-20] MEDS: ONDANSETRON 4 MG TAB PO PRN ×2 (07:38→11:47)
--- NOTE | 2019-04-20 07:41 | General Surgery Progress Note ---
Subjective Progress Notes Subjective nausea last night. vomiting x2. +flatus. mild abd pain. Physical Exam Vital Signs Date Time Temp Pulse Resp B/P (MAP) Pulse Ox O2 Delivery O2 Flow Rate FiO2 04/20/19 06:57 98.3 70 16 128/95 (106) 95 Nasal Cannula 1.0 Intake and Output 04/20/19 07:01 Intake Total 1080 ml Output Total 1250 ml Balance -170 ml Intake Oral 1080 ml Output Urine Total 650 ml Emesis 600 ml # Voids 2 # Bowel Movements 1 # Emeses 1 Cardiovascular: Other (reg rate) GI: Other (abd soft, distended, no peritoneal signs) Result Diagram: 04/19/19 0532 04/19/19 0532 Assessment and Plan Problems: (1) Volvulus Status: Acute Assessment & Plan: 04/19/19: doing well. no ivf needed. d/c hodge. advance diet. ambulate. 04/20/19: n/v. ambulate, chew gum, ivf, ice chips, labs, kub Exam Sepsis Risk: No Definite Risk BHARATH SNYDER Apr 20, 2019 07:41
--- NOTE | 2019-04-20 08:26 | RADIOLOGY IMAGING REPORT ---
FACILITY: [facility] PATIENT NAME: Ez Smith : 1985 MR: [id number] V: [id number] EXAM DATE: ORDERING PHYSICIAN: BHARATH SNYDER TECHNOLOGIST: [facility] Patient: Ez Smith : 1985 Visit/Account:[id number] Date of Sevice: 04/20/2019 Abdomen single view: HISTORY: Abdominal distention, nausea COMPARISON: None. FINDINGS: Single view was obtained of the abdomen. There is distention of bowel, this appears to be mostly colon. There is some free air present. Skin fito and surgical suture line in the right ab domen suggest recent surgery and free air presumed to be related to patient's recent surgery. Air is present to the level of the rectum. Osseous structures are unremarkable. IMPRESSION: Distended colon. This may represent ileus. There are no definitive findings of obstruct ion. Report Dictated By: Isabela Baker MD at 04/20/2019 8:15 AM Report E-Signed By: Isabela Baker MD at 04/20/2019 8:20 AM [email or web address]
[2019-04-20] MEDS: ENOXAPARIN 40 MG/0.4ML SYR SC SCH (08:36)
[2019-04-20 08:53] LABS: PLATELET COUNT, AUTOMATED 224 K/uL (150-450)
[2019-04-20] MEDS: GABAPENTIN 300 MG CAP PO SCH ×2 (09:00→21:00)
[2019-04-20] MEDS ORDERED: NS(*) 0.9% 1000 ML BAG 1,000 ML IV ONE (10:10)
[2019-04-20 11:45] VITALS: BP 124/95
--- NOTE | 2019-04-20 11:48 | NUR ---
04/20/19 1148 toradol non-admin: Creatinine elevated to 1.6, medication not given per dr. order.
--- NOTE | 2019-04-20 13:59 | RADIOLOGY IMAGING REPORT ---
FACILITY: [facility] PATIENT NAME: Ez Smith : 1985 MR: [id number] V: [id number] EXAM DATE: ORDERING PHYSICIAN: BHARATH SNYDER TECHNOLOGIST: Location: [facility] Patient: Ez Smith : 1985 Visit/Account:[id number] Date of Sevice: 04/20/2019 Chest single view: HISTORY: NG placement COMPARISON: Abdominal film 04/20/2019 FINDINGS: Portable chest 1250 hours: Since prior study, NG tube has been placed, tip projects over th e expected region of the stomach. There is persistently dilated bowel within the abdomen. Free air is present. There is bibasilar subsegmental atelectasis. Upper lungs are clear. Heart and mediastinal contours are within normal limits. IMPRESSION: 1. Interval placement of NG tube, tip in the stomach. 2. Persistent dilatation of bowel and persistent free air. 3. Bibasilar subsegmental atelectasis. Report Dictated By: Isabela Baker MD at 04/20/2019 1:52 PM Report E-Signed By: Isabela Baker MD at 04/20/2019 1:54 PM WSN:[email or web address]
[2019-04-20 15:55] VITALS: BP 131/99
[2019-04-20] MEDS: NS(*) 0.9% 1000 ML BAG 1,000 ML IV PRN (16:34)
[2019-04-20 20:24] VITALS: BP 122/93
[2019-04-20] MEDS ORDERED: METOCLOPRAMIDE 10 MG/2 ML SDV IVP SCH (22:00)
[2019-04-20] MEDS ORDERED: ONDANSETRON 4 MG/2 ML VIAL IVP PRN (22:10)
[2019-04-20 23:40] VITALS: BP 131/90
--- NOTE | 2019-04-21 05:02 | NUR ---
MD order not to give Toradol due to Creat. Level.
[2019-04-21] MEDS: KETOROLAC 30 MG/ML VIAL IVP SCH ×5 (06:00→23:27)
[2019-04-21 06:12] LABS: PLATELET COUNT, AUTOMATED 235 K/uL (150-450)
[2019-04-21] MEDS: METOCLOPRAMIDE 10 MG/2 ML SDV IVP SCH ×3 (06:15→21:23)
[2019-04-21 06:45] VITALS: BP 136/99
[2019-04-21] MEDS: NS(*) 0.9% 1000 ML BAG 1,000 ML IV PRN ×3 (08:25→23:27)
[2019-04-21] MEDS: GABAPENTIN 300 MG CAP PO SCH ×2 (09:28→21:22)
[2019-04-21] MEDS: ENOXAPARIN 40 MG/0.4ML SYR SC SCH (09:30)
--- NOTE | 2019-04-21 10:53 | General Surgery Progress Note ---
Subjective Progress Notes Subjective feeling better. vomiting early am. +flatus and somd dark blood. Physical Exam Vital Signs Date Time Temp Pulse Resp B/P (MAP) Pulse Ox O2 Delivery O2 Flow Rate FiO2 04/21/19 08:10 95 Nasal Cannula 1.0 04/21/19 06:45 98.9 97 20 136/99 (111) Intake and Output 04/21/19 07:01 Output Total 800 ml Balance -800 ml Gastric Drainage Total 800 ml # Voids 3 General Appearance: No Acute Distress Cardiovascular: Other (reg rate) GI: Other (abd soft, distended, no peritoneal signs) Result Diagram: 04/21/1951804/21/19518 Assessment and Plan Problems: (1) Volvulus Status: Acute Assessment & Plan: 04/19/19: doing well. no ivf needed. d/c hodge. advance diet. ambulate. 04/20/19: n/v. ambulate, chew gum, ivf, ice chips, labs, kub 04/21/19: improving, sips/chips, unable to tolerate ngt yesterday so it was removed after about 800 ml of fluid suctioned from stomach, cont ivf, ambulate Exam Sepsis Risk: No Definite Risk BHARATH SNYDER Apr 21, 2019 10:53
[2019-04-21 11:00] VITALS: BP 144/100
--- NOTE | 2019-04-21 14:13 | RADIOLOGY IMAGING REPORT ---
FACILITY: [facility] [place] PATIENT NAME: Ez Smith : 1985 MR: [id number] V: [id number] EXAM DATE: ORDERING PHYSICIAN: BHARATH DIMAS TECHNOLOGIST: Location: [facility] [place] Patient: Ez Smith : 1985 Visit/Account:[id number] Date of Sevice: 04/21/2019 CHEST SINGLE AP HISTORY: Abdominal distention. Recent surgery. COMPARISON: 04/20/2019 FINDINGS: Cardiomediastinal contours: Normal Lungs and pleura: Normal Bones/soft tissues: Normal Other findings: Increasing free air within the abdomen. IMPRESSION: 1. Increasing free air within the abdomen although in discussion with Dr. Dimas the patient is impr oving clinically from yesterday. Recommend continued clinical and x-ray surveillance. Report Dictated By: Stephon Madera MD at 04/21/2019 2:05 PM Report E-Signed By: Stephon Madera MD at 04/21/2019 2:08 PM WSN:[email or web address]
[2019-04-21 14:56] VITALS: BP 131/96
[2019-04-21 20:00] VITALS: BP 138/91
[2019-04-21] MEDS ORDERED: ACETAMINOPHEN(*)1000 MG/100 ML 100 ML IVPB PRN (20:30)
[2019-04-21 23:24] VITALS: BP 114/73
[2019-04-22] VITALS (7 sets, daily range): BP systolic 121–138; BP diastolic 76–98
[2019-04-22 05:24] LABS: PLATELET COUNT, AUTOMATED 220 K/uL (150-450)
[2019-04-22] MEDS: METOCLOPRAMIDE 10 MG/2 ML SDV IVP SCH ×3 (05:51→22:28)
[2019-04-22] MEDS: KETOROLAC 30 MG/ML VIAL IVP SCH (05:51)
[2019-04-22] MEDS ORDERED: KETOROLAC 15 MG/ML VIAL IVP PRN (06:20)
[2019-04-22] MEDS: NS(*) 0.9% 1000 ML BAG 1,000 ML IV PRN ×3 (07:20→23:39)
[2019-04-22] MEDS: GABAPENTIN 300 MG CAP PO SCH ×2 (08:41→21:00)
[2019-04-22] MEDS: ENOXAPARIN 40 MG/0.4ML SYR SC SCH (08:41)
--- NOTE | 2019-04-22 10:37 | General Surgery Progress Note ---
Subjective Progress Notes Subjective feels better, + liquid stools Physical Exam Vital Signs Date Time Temp Pulse Resp B/P (MAP) Pulse Ox O2 Delivery O2 Flow Rate FiO2 04/22/19 07:15 93 Room Air 04/22/19 06:53 98.2 100 14 137/91 (106) 0.5 Intake and Output 04/22/19 07:01 Intake Total 2017 ml Balance 2017 ml Intake Oral 100 ml IV Total 1917 ml # Voids 4 # Bowel Movements 4 General Appearance: Alert, Awake, No Acute Distress, Afebrile Neuro: No Gross deficits Cardiovascular: Normal Rhythm & Peripheral Pulses Respiratory: No Respiratory Distress, Clear to Auscultation GI: Soft and Non-Tender, Other (incisons clean) Musculoskeletal: No Weakness/Pain Integumentary: Skin Intact without Lesion / Mass Psych: Alert & Oriented X3, Appropriate Mood & Affect Result Diagram: 04/22/1951604/22/19516 Assessment and Plan Problems: (1) Volvulus Status: Acute Assessment & Plan: 04/19/19: doing well. no ivf needed. d/c hodge. advance diet. ambulate. 04/20/19: n/v. ambulate, chew gum, ivf, ice chips, labs, kub 04/21/19: improving, sips/chips, unable to tolerate ngt yesterday so it was removed after about 800 ml of fluid suctioned from stomach, cont ivf, ambulate 04/22/19: cont limited sips clear liquid. Will go slow with PO intake since he required an NGT recently. Central Venous Access Medical Necessity for Access: IV Access Time Spent: > 30 min Exam Sepsis Risk: No Definite Risk SURYA SUAREZ MD Apr 22, 2019 10:37
[2019-04-22] MEDS ORDERED: IOPAMIDOL 76% 100 ML INFUS BTL 100 ML ONE (16:38)
--- NOTE | 2019-04-22 17:47 | RADIOLOGY IMAGING REPORT ---
FACILITY: [facility] [place] [place] PATIENT NAME: Ez Smith : 1985 MR: [id number] V: [id number] EXAM DATE: ORDERING PHYSICIAN: SURYA SUAREZ TECHNOLOGIST: Location: [facility] Patient: Ez Smith : 1985 Visit/Account:[id number] Date of Sevice: 04/22/2019 CT abdomen and pelvis without and with IV contrast Indication: Abdominal distention. Recent surgery. Comparison: 03/01/2019.. Technique: Axial CT images were obtained through the abdomen and pelvis prior to and during injecti on of nonionic iodinated intravenous contrast. Reformatted coronal and sagittal images were also obta ined. One of the following dose optimization techniques was utilized in the performance of this exam: Autom ated exposure control; adjustment of the mA and/or kV according to the patient's size; or use of an i terative reconstruction technique. Specific details can be referenced in the facility's radiology C T exam operational policy. Contrast: 75 ml of Isovue-370 IV contrast. Findings: Lower lung mendes: Limited views lower lung field are unremarkable. Liver: No focal parenchymal abnormality of the liver. Biliary: Gallbladder appears unremarkable as well as the intra and extra hepatic biliary system. Pancreas: Normal appearance. Spleen: Normal appearance. Adrenal glands: Unremarkable. Kidneys / retroperitoneum: No evidence of nephrolithiasis or hydronephrosis. No focal abnormality. Bowel / peritoneum / mesenteries: There is a significant amount of free air present. Small amount of free fluid seen in the pelvis. No fluid collections or focal areas of inflammation. Small amount o f subcutaneous air along the anterior abdomen. The visualized colon is unremarkable decompressed. Apparent partial colon resection. There are nume lu dilated loops of small bowel without focal abnormality or wall thickening. The area of transiti on appears to be in the right mid abdomen along the suture line. The stomach is distended as well wi thout focal abnormality. Lymph node assessment: No pathologic adenopathy identified. Pelvic structures: Appear unremarkable. Vessels: No significant atherosclerotic calcifications seen throughout a nonaneurysmal abdominal aort a and branches. Musculoskeletal / Body wall: No acute or aggressive osseous abnormality. IMPRESSION: 1. Small bowel obstruction. Area of transition appears to be in the right mid abdomen along the sut ure line. 2. Significant amount of free air. This appears to be more than expected for recent surgery. Small amount of free fluid seen in the pelvis. I called report to SURYA SUAREZ at 04/22/2019 5:38 PM. Report Dictated By: Josh Flores at 04/22/2019 5:27 PM Report E-Signed By: Josh Flores at 04/22/2019 5:41 PM WSN:[email or web address]
[2019-04-22] MEDS ORDERED: LIDOCAINE 2% JELLY 5 ML TUBE TP ONE (19:00)
[2019-04-22] MEDS ORDERED: BENZOCAINE/TETRACAINE/BUTAMBEN TOP ONE (19:00)
--- NOTE | 2019-04-22 19:07 | General Surgery Progress Note ---
Subjective Progress Notes Subjective reports increased abdominal pressure this later afternoon. No NV, continues to pass flatus and liquid stool. Physical Exam Vital Signs Date Time Temp Pulse Resp B/P (MAP) Pulse Ox O2 Delivery O2 Flow Rate FiO2 04/22/19 15:05 97.5 101 16 138/98 (111) 91 Room Air 04/22/19 06:53 0.5 Intake and Output 04/22/19 07:01 Intake Total 2017 ml Balance 2017 ml Intake Oral 100 ml IV Total 1917 ml # Voids 4 # Bowel Movements 4 General Appearance: Alert, Awake, No Acute Distress, Afebrile Cardiovascular: Normal Rhythm & Peripheral Pulses Respiratory: No Respiratory Distress, Clear to Auscultation GI: Other (remains soft without peritoneal s/s, + tympanitic at the epigastrium. Incision clean.) Psych: Alert & Oriented X3, Appropriate Mood & Affect Result Diagram: 04/22/1951604/22/19516 Assessment and Plan Problems: (1) Volvulus Status: Acute Assessment & Plan: 04/19/19: doing well. no ivf needed. d/c hodge. advance diet. ambulate. 04/20/19: n/v. ambulate, chew gum, ivf, ice chips, labs, kub 04/21/19: improving, sips/chips, unable to tolerate ngt yesterday so it was removed after about 800 ml of fluid suctioned from stomach, cont ivf, ambulate 04/22/19: cont limited sips clear liquid. Will go slow with PO intake since he required an NGT recently. 04/22/19 1800: ABD CT ordered this afternoon given above complaints which was reviewed with Radiology and Dr Dimas. ABD CT with marked dilated stomach, dilated loops of small bowel, small amount of fluid in the pelvis and ongoing pneumoperitoneum. Will place NGT and follow exam closely. Will hold off on re- exploration at this point given his lack of peritoneal signs, stable VS and unremarkable labs. Central Venous Access Medical Necessity for Access: IV Access Time Spent: > 30 min Exam Sepsis Risk: No Definite Risk SURYA SUAREZ MD Apr 22, 2019 19:07
--- NOTE | 2019-04-22 22:14 | RADIOLOGY IMAGING REPORT ---
FACILITY: [facility] [place] PATIENT NAME: zE Smith : 1985 MR: [id number] V: [id number] EXAM DATE: ORDERING PHYSICIAN: SURYA SUAREZ TECHNOLOGIST: Location: [facility] Patient: Ez Smith : 1985 Visit/Account:[id number] Date of Sevice: 04/22/2019 INDICATION: Nasogastric tube position and gastric distention. EXAM DATE: 04/22/2019 9:30 PM COMPARISON: Same day CT abdomen and pelvis, radiographs 04/20/2019. FINDINGS: AP images of the abdomen. The upper abdomen is incompletely imaged. The esophagogastric tube likely terminates near the stomac h fundus of the stomach. The stomach appears partially decompressed but is incompletely imaged. Redemonstration of multiple dilated loops of small bowel as well as pneumoperitoneum outlining the ou ter surface of bowel loops. No definite pneumatosis. Cutaneous fito over the left lower quadrant . Excreted contrast in the ureters and urinary bladder. IMPRESSION: 1. Limited examination with incompletely imaged upper abdomen. 2. Esophagogastric tube likely terminates near the fundus of the stomach, and the stomach appears pa rtially decompressed. 3. Persistent small bowel dilation and pneumoperitoneum. Report Dictated By: Francis Mcintyre MD at 04/22/2019 10:02 PM Report E-Signed By: Francis Mcintyre MD at 04/22/2019 10:08 PM [email or web address]
[2019-04-23 04:08] VITALS: BP 130/89
[2019-04-23 05:46] LABS: PLATELET COUNT, AUTOMATED 189 K/uL (150-450)
[2019-04-23] MEDS: METOCLOPRAMIDE 10 MG/2 ML SDV IVP SCH ×3 (06:01→21:16)
[2019-04-23 06:45] VITALS: BP 124/83
--- NOTE | 2019-04-23 07:40 | General Surgery Progress Note ---
Subjective Progress Notes Subjective feels better this am. No NV. Continues to pass gas and liquid stools. Feels less bloated. Physical Exam Vital Signs Date Time Temp Pulse Resp B/P (MAP) Pulse Ox O2 Delivery O2 Flow Rate FiO2 04/23/19 06:45 98.4 76 16 124/83 (97) 94 Room Air 04/22/19 06:53 0.5 Intake and Output 04/23/19 07:01 Intake Total 2072 ml Output Total 450 ml Balance 1622 ml Intake Oral 200 ml IV Total 1872 ml Gastric Drainage Total 450 ml # Voids 6 # Bowel Movements 7 General Appearance: Alert, Awake, No Acute Distress, Afebrile Neuro: No Gross deficits Cardiovascular: Normal Rhythm & Peripheral Pulses Respiratory: No Respiratory Distress, Clear to Auscultation GI: Soft and Non-Tender, Other (incision clean, no peritoneal s/s) Musculoskeletal: No Weakness/Pain Integumentary: Skin Intact without Lesion / Mass Psych: Alert & Oriented X3, Appropriate Mood & Affect Result Diagram: 04/23/1951104/23/19511 Monitor Interpretation: Normal Sinus Rhythm Assessment and Plan Problems: (1) Volvulus Status: Acute Assessment & Plan: 04/19/19: doing well. no ivf needed. d/c hodge. advance diet. ambulate. 04/20/19: n/v. ambulate, chew gum, ivf, ice chips, labs, kub 04/21/19: improving, sips/chips, unable to tolerate ngt yesterday so it was removed after about 800 ml of fluid suctioned from stomach, cont ivf, ambulate 04/22/19: cont limited sips clear liquid. Will go slow with PO intake since he required an NGT recently. 04/22/19 1800: ABD CT ordered this afternoon given above complaints which was reviewed with Radiology and Dr Dimas. ABD CT with marked dilated stomach, dilated loops of small bowel, small amount of fluid in the pelvis and ongoing pneumoperitoneum. Will place NGT and follow exam closely. Will hold off on re- exploration at this point given his lack of peritoneal signs, stable VS and unremarkable labs. 04/23/19: Steady progress, ileus resolving clinically. Cont NPO given dilated small bowel/stomach on imaging. NGT DC'd per pt preference. Cont close clinical observation. No signs of sepsis or peritonitis at this point. Central Venous Access Medical Necessity for Access: IV Access Time Spent: > 30 min Exam Sepsis Risk: No Definite Risk SURYA SUAREZ MD Apr 23, 2019 07:40
[2019-04-23] MEDS: NS(*) 0.9% 1000 ML BAG 1,000 ML IV PRN (07:54)
[2019-04-23] MEDS: GABAPENTIN 300 MG CAP PO SCH ×2 (08:48→20:25)
[2019-04-23] MEDS: ENOXAPARIN 40 MG/0.4ML SYR SC SCH (08:48)
[2019-04-23] MEDS: KCL/D1/2NS 20 MEQ 1000 ML 1,000 ML IV SCH ×2 (10:18→20:25)
[2019-04-23 14:44] VITALS: BP 130/86
[2019-04-23 18:51] VITALS: BP 129/86
[2019-04-24 05:24] LABS: PLATELET COUNT, AUTOMATED 217 K/uL (150-450)
[2019-04-24] MEDS: METOCLOPRAMIDE 10 MG/2 ML SDV IVP SCH (06:01)
[2019-04-24 06:51] VITALS: BP 114/83
[2019-04-24] MEDS: KCL/D1/2NS 20 MEQ 1000 ML 1,000 ML IV SCH (07:30)
--- NOTE | 2019-04-24 09:37 | General Surgery Progress Note ---
Subjective Progress Notes Subjective continues to feel better each day. Multiple loose stools overnight, every 2 hours with ++ flatus. No NV. Physical Exam Vital Signs Date Time Temp Pulse Resp B/P (MAP) Pulse Ox O2 Delivery O2 Flow Rate FiO2 04/24/19 06:51 98.6 80 16 114/83 (93) 94 Room Air 04/22/19 06:53 0.5 Intake and Output 04/24/19 07:01 Intake Total 1416 ml Balance 1416 ml Intake Oral 0 ml IV Total 1416 ml # Voids 5 # Bowel Movements 9 General Appearance: Alert, Awake, No Acute Distress, Afebrile Neuro: No Gross deficits Cardiovascular: Normal Rhythm & Peripheral Pulses Respiratory: No Respiratory Distress, Clear to Auscultation GI: Soft and Non-Tender, Other (incision site clean, dry and intact, less distended, no tympany) Musculoskeletal: No Weakness/Pain Integumentary: Skin Intact without Lesion / Mass Psych: Alert & Oriented X3, Appropriate Mood & Affect Result Diagram: 04/24/1951404/24/19514 Monitor Interpretation: Normal Sinus Rhythm Assessment and Plan Problems: (1) Volvulus Status: Acute Assessment & Plan: 04/19/19: doing well. no ivf needed. d/c hodge. advance diet. ambulate. 04/20/19: n/v. ambulate, chew gum, ivf, ice chips, labs, kub 04/21/19: improving, sips/chips, unable to tolerate ngt yesterday so it was removed after about 800 ml of fluid suctioned from stomach, cont ivf, ambulate 04/22/19: cont limited sips clear liquid. Will go slow with PO intake since he required an NGT recently. 04/22/19 1800: ABD CT ordered this afternoon given above complaints which was reviewed with Radiology and Dr Dimas. ABD CT with marked dilated stomach, dilated loops of small bowel, small amount of fluid in the pelvis and ongoing pneumoperitoneum. Will place NGT and follow exam closely. Will hold off on re-exploration at this point given his lack of peritoneal signs, stable VS and unremarkable labs. 04/23/19: Steady progress, ileus resolving clinically. Cont NPO given dilated small bowel/stomach on imaging. NGT DC'd per pt preference. Cont close clinical observation. No signs of sepsis or peritonitis at this point. 04/24/19: POD# 6. Start clear liquids slowly again this am. Add Boost/Ensure supplements. Avoid carbonated beverages. Stop Reglan due to multiple loose stools. Consider C dif testing if diarrhea persists. Central Venous Access Medical Necessity for Access: IV Access Time Spent: > 30 min Exam Sepsis Risk: No Definite Risk SURYA SUAREZ MD Apr 24, 2019 09:37
[2019-04-24] MEDS: ENOXAPARIN 40 MG/0.4ML SYR SC SCH (09:46)
[2019-04-24] MEDS: GABAPENTIN 300 MG CAP PO SCH ×2 (09:46→21:10)
[2019-04-24] MEDS ORDERED: PANTOPRAZOLE SOD 40 MG IV VIAL IVP SCH (10:00)
[2019-04-24 14:18] VITALS: BP 130/90
[2019-04-24 18:43] VITALS: BP 118/92
[2019-04-25 04:26] VITALS: BP 124/84
[2019-04-25 07:05] VITALS: BP 120/86
--- NOTE | 2019-04-25 07:13 | General Surgery Progress Note ---
Subjective Progress Notes Subjective doing well. mult loose bms. no n/v. fadi clears. Physical Exam Vital Signs Date Time Temp Pulse Resp B/P (MAP) Pulse Ox O2 Delivery O2 Flow Rate FiO2 04/25/19 07:05 97.8 82 17 120/86 (97) 92 Room Air 04/22/19 06:53 0.5 Intake and Output 04/25/19 07:01 Intake Total 2117 ml Balance 2117 ml Intake Oral 1120 ml IV Total 997 ml # Voids 4 # Bowel Movements 10 General Appearance: No Acute Distress Cardiovascular: Other (reg rate) GI: Other (soft, minimal distention, inc c/d/i) Result Diagram: 04/24/1951404/24/19514 Monitor Interpretation: Normal Sinus Rhythm Assessment and Plan Problems: (1) Volvulus Status: Acute Assessment & Plan: 04/19/19: doing well. no ivf needed. d/c hodge. advance diet. ambulate. 04/20/19: n/v. ambulate, chew gum, ivf, ice chips, labs, kub 04/21/19: improving, sips/chips, unable to tolerate ngt yesterday so it was removed after about 800 ml of fluid suctioned from stomach, cont ivf, ambulate 04/22/19: cont limited sips clear liquid. Will go slow with PO intake since he required an NGT recently. 04/22/19 1800: ABD CT ordered this afternoon given above complaints which was reviewed with Radiology and Dr Dimas. ABD CT with marked dilated stomach, dilated loops of small bowel, small amount of fluid in the pelvis and ongoing pneumoperitoneum. Will place NGT and follow exam closely. Will hold off on re- exploration at this point given his lack of peritoneal signs, stable VS and unremarkable labs. 04/23/19: Steady progress, ileus resolving clinically. Cont NPO given dilated small bowel/stomach on imaging. NGT DC'd per pt preference. Cont close clinical observation. No signs of sepsis or peritonitis at this point. 04/24/19: POD# 6. Start clear liquids slowly again this am. Add Boost/Ensure supplements. Avoid carbonated beverages. Stop Reglan due to multiple loose stools. Consider C dif testing if diarrhea persists. 04/25/19: doing well. full liquids. ambulate. likely home tomorrow. Central Venous Access Medical Necessity for Access: IV Access Exam Sepsis Risk: No Definite Risk BHARATH DIMAS Apr 25, 2019 07:13
[2019-04-25] MEDS: PANTOPRAZOLE SOD 20 MG TABEC PO SCH (10:01)
[2019-04-25] MEDS: GABAPENTIN 300 MG CAP PO SCH ×2 (10:01→21:04)
[2019-04-25] MEDS: ENOXAPARIN 40 MG/0.4ML SYR SC SCH (10:01)
[2019-04-25 11:40] VITALS: BP 117/81
[2019-04-25 21:02] VITALS: BP 120/79
[2019-04-26 06:18] VITALS: BP 115/75
[2019-04-26] MEDS ORDERED: TRAM-420 PO (06:34)
--- NOTE | 2019-04-26 07:41 | Hospitalist Depart ---
Discharge Summary Reason for Hosp/Final Diag: (1) Volvulus Status: Acute Hospital Course & Plan: 04/19/19: doing well. no ivf needed. d/c hodge. advance diet. ambulate. 04/20/19: n/v. ambulate, chew gum, ivf, ice chips, labs, kub 04/21/19: improving, sips/chips, unable to tolerate ngt yesterday so it was removed after about 800 ml of fluid suctioned from stomach, cont ivf, ambulate 04/22/19: cont limited sips clear liquid. Will go slow with PO intake since he required an NGT recently. 04/22/19 1800: ABD CT ordered this afternoon given above complaints which was reviewed with Radiology and Dr Dimas. ABD CT with marked dilated stomach, dilated loops of small bowel, small amount of fluid in the pelvis and ongoing pneumoperitoneum. Will place NGT and follow exam closely. Will hold off on re-exploration at this point given his lack of peritoneal signs, stable VS and unremarkable labs. 04/23/19: Steady progress, ileus resolving clinically. Cont NPO given dilated small bowel/stomach on imaging. NGT DC'd per pt preference. Cont close clinical observation. No signs of sepsis or peritonitis at this point. 04/24/19: POD# 6. Start clear liquids slowly again this am. Add Boost/Ensure supplements. Avoid carbonated beverages. Stop Reglan due to multiple loose stools. Consider C dif testing if diarrhea persists. 04/25/19: doing well. full liquids. ambulate. likely home tomorrow. 04/26/19: doing well. fadi food. feels ready to go home. d/c home. Departure Weight (Pounds): 179 Weight (Ounces): 8.0 Result Diagram: 04/24/1951404/24/1915 Condition: Improved Discharge: Home Discharge Instructions Home Meds Active Scripts Tramadol Hcl (TRAMADOL HCL) 50 Mg Tablet, 50 MG PO Q6H PRN for PAIN, #20 TAB Prov:BHARATH DIMAS 04/26/19 Reported Medications Multivitamin (MULTIVITAMINS) 1 Each Capsule, 1 EACH PO QDAY, CAPSULE 03/01/19 Diet: Regular Activity: No Heavy Lifting Special Instructions: no lifting more than 20 lbs for 6 wks from surgery. f/u as instructed. ok to shower. Venous Thromboembolism Antithrombotics Is Pt On Any Antithrombotics?: Yes BHARATH DIMAS Apr 26, 2019 07:41
[2019-04-26] MEDS: PANTOPRAZOLE SOD 20 MG TABEC PO SCH (08:51)
[2019-04-26] MEDS: GABAPENTIN 300 MG CAP PO SCH (08:52)
[2019-04-26] MEDS: ENOXAPARIN 40 MG/0.4ML SYR SC SCH (08:52)
[2019-04-26 08:54] VITALS: BP 120/81
== END 2019-04-26 09:07 | disposition home or self-care (01) | DRG 331 ==
LOC: OR 00:27 → OBSVTOIN 15:00 → MED 15:00
PROVIDERS: ADMIT Surgery; ATTEND Surgery
PROC: 0DBL4ZZ Excision of Transverse Colon, Percutaneous Endoscopic Approach (ICD-10-PCS; 2019-04-18)
PROC: 0D9670Z Drainage of Stomach with Drainage Device, Via Natural or Artificial Opening (ICD-10-PCS; 2019-04-18)
PROC: 0DBM4ZZ Excision of Descending Colon, Percutaneous Endoscopic Approach (ICD-10-PCS; principal; 2019-04-18 10:57)
DX: K56.2 Volvulus (principal)
CPT/HCPCS: 36415; 71045; 74018; 74178; 82040; 82247; 82248; 82310; 82374; 82435; 82565; 82947; 83690; 83735; 84075; 84100; 84132; 84155; 84295; 84450; 84460; 84520; 85025; 86140; 88307; C9113; J0131; J1100; J1170; J1650; J1885; J1956; J2001; J2250; J2405; J2550; J2704; J2765; J3010; J3480; J3490; J7030; Q9967; S0119

== ENCOUNTER 2019-05-14 18:04 | Inpatient (IN) | payer OTHER ==
[~2019-05-14] VITALS: Ht 182.9 cm; Wt 69.9 kg
[~2019-05-14 18:04] MED LIST changes: +PANT40TA65 PO; +TRAM-420 PO; +ZOLP-350 PO
--- NOTE | 2019-05-14 18:10 | ER Report ---
History and Physical Time Seen By MD: 18:07 HPI/ROS CHIEF COMPLAINT: abdominal pain and distention HISTORY OF PRESENT ILLNESS: This is a 34 year old male. He is having abdominal pain today, with severe distention. He has been having problems with bowels since his surgery for sigmoid volvulus last month. Had bowel movements yesterday, but none today. Only passing a very little gas. Abdomen has been steadily getting more distended and now firm with more pain. Nauseated, but no vomiting yet. No fevers or chills noted. No trouble with urination. Not much appetite today. Allergies: Coded Allergies: No Known Drug Allergies (Unverified , 03/01/19) Home Meds Active Scripts Pantoprazole Sodium (PANTOPRAZOLE SODIUM) 40 Mg Tablet.dr, 1 TAB PO DAILY, #30 CAP 2 Refills Prov:BHARATH SNYDER P 05/10/19 Zolpidem Tartrate (AMBIEN) 10 Mg Tablet, 1 TAB PO QHS PRN for INSOMNIA, #20 TAB Prov:BHARATH SNYDER P 05/10/19 Tramadol Hcl (TRAMADOL HCL) 50 Mg Tablet, 50 MG PO Q6H PRN for PAIN, #20 TAB Prov:BHARATH SNYDER P 04/26/19 Reported Medications Multivitamin (MULTIVITAMINS) 1 Each Capsule, 1 EACH PO QDAY, CAPSULE 03/01/19 Reviewed Nurses Notes: Yes Hx Smoking: No Smoking Status: Never Smoker Hx Substance Use Disorder: No Hx Alcohol Use: Yes (OCC) Constitutional Vital Sign - Last 24 Hours 05/14/19 05/14/19 05/14/19 05/14/19 18:09 18:19 18:34 18:49 Temp 98.6 Pulse 106 106 97 ??? Resp 20 B/P (MAP) 140/93 Pulse Ox 90 90 97 O2 Delivery Room Air 05/14/19 05/14/19 05/14/19 05/14/19 19:04 19:19 19:34 19:46 Pulse 96 98 94 B/P (MAP) 126/83 (97) Pulse Ox 96 96 95 05/14/19 05/14/19 05/14/19 05/14/19 19:49 20:00 20:05 20:20 Pulse 98 101 102 B/P (MAP) 125/86 (99) Pulse Ox 95 95 95 05/14/19 20:30 B/P (MAP) 130/81 (97) Physical Exam General Appearance: The patient is alert. No acute distress. Eyes: Pupils are equal, round. No pallor, injection or icterus. ENT: Mucous membranes are moist. Normal oral mucosa. Respiratory: Lungs are clear to auscultation. Cardiovascular: Regular rate and rhythm. No murmurs, gallops or rubs. Normal peripheral perfusion. Gastrointestinal: Abdomen is diffusely tendere. Very distended and firm. Guarding throughout. Hyperactive bowel sounds. No CVA tenderness. Neurological: Alert and oriented x3. No focal neurologic deficits Skin: Warm and dry. Musculoskeletal: No back pain. DIFFERENTIAL DIAGNOSIS: After history and physical exam, differential diagnosis was considered for abdominal pain including but not limited to obstruction Medical Decision Making Data Points Result Diagram: 05/14/19 1829 05/14/19 1829 Laboratory Hematology Test 05/14/19 18:29 White Blood Count 9.2 k/uL (4.5-11.0) Red Blood Count 4.26 M/uL (4.00-5.60) Hemoglobin 13.5 g/dL (14.0-18.0) L Hematocrit 38.8 % (42.0-52.0) L Mean Corpuscular Volume 91.2 fL (80.0-96.0) Mean Corpuscular Hemoglobin 31.8 pg (26.0-33.0) Mean Corpuscular Hemoglobin Concent 34.8 g/dL (32.0-36.0) Red Cell Distribution Width 12.9 % (11.5-14.5) Platelet Count 648 K/uL (150-450) H Mean Platelet Volume 6.4 fL (7.2-11.1) L Neutrophils (%) (Auto) 74.1 % (39.4-72.5) H Lymphocytes (%) (Auto) 9.1 % (17.6-49.6) L Monocytes (%) (Auto) 8.4 % (4.1-12.4) Eosinophils (%) (Auto) 7.8 % (0.4-6.7) H Basophils (%) (Auto) 0.6 % (0.3-1.4) Nucleated RBC Relative Count (auto) 0.0 /100WBC Neutrophils # (Auto) 6.8 K/uL (2.0-7.4) Lymphocytes # (Auto) 0.8 K/uL (1.3-3.6) L Monocytes # (Auto) 0.8 K/uL (0.3-1.0) Eosinophils # (Auto) 0.7 K/uL (0.0-0.5) H Basophils # (Auto) 0.1 K/uL (0.0-0.1) Nucleated RBC Absolute Count (auto) 0.00 K/uL Peripheral Blood Smear Yes Y/N Chemistry Test 05/14/19 18:29 Sodium Level 133 mmol/L (137-145) Potassium Level 4.0 mmol/L (3.5-5.0) Chloride Level 96 mmol/L (98-107) Carbon Dioxide Level 27 mmol/L (22-30) Blood Urea Nitrogen 5 mg/dl (9-21) Creatinine 0.80 mg/dl (0.66-1.25) Glomerular Filtration Rate Calc > 60.0 Random Glucose 112 mg/dl (75-110) Lactate 0.8 mmol/L (0.7-2.1) Calcium Level 8.5 mg/dl (8.4-10.2) Total Bilirubin 1.2 mg/dl (0.2-1.3) Aspartate Amino Transf (AST/SGOT) 21 U/L (0-35) Alanine Aminotransferase (ALT/SGPT) 38 U/L (0-56) Alkaline Phosphatase 73 U/L (0-126) C-Reactive Protein 14.1 mg/dl (<1.0) Total Protein 6.2 g/dl (6.3-8.2) Albumin 3.0 g/dl (3.5-5.0) Amylase Level 70 U/L (0-110) Lipase 92 U/L (23-300) Urinalysis Test 05/14/19 00:00 Urine Color Straw Urine Clarity Clear Urine pH 6.0 pH (4.8-9.5) Urine Specific [place] 1.032 Urine Protein Negative mg/dL (NEGATIVE) Urine Glucose (UA) Negative mg/dL (NEGATIVE) Urine Ketones 20 mg/dL (NEGATIVE) Urine Blood Negative (NEGATIVE) Urine Nitrite Negative (NEGATIVE) Urine Bilirubin Negative (NEGATIVE) Urine Urobilinogen Negative mg/dL (0.2-1.9) Urine Leukocyte Esterase Negative (NEGATIVE) Urine RBC <1 /HPF (0-2/HPF) Urine WBC None /HPF (0-5/HPF) Urine Squamous Epithelial Cells None /LPF (</=FEW) Urine Bacteria Negative /HPF (NONE-FEW) Urine Mucus None /HPF (NONE-FEW) EKG/Imaging Imaging EXAMINATION: CT abdomen and pelvis with IV contrast HISTORY: Abdominal pain and distention. Surgery one month ago with partial colonic resection. TECHNIQUE: Axial CT images of the abdomen and pelvis were obtained with IV contrast, with coronal and sagittal 2D reconstructed images. One of the following dose optimization techniques was utilized in the performance of this exam: Automated exposure control; adjustment of the mA and/or kV according to the patient's size; or use of an iterative reconstruction technique. Specific details can be referenced in the facility's radiology CT exam operational policy. Contrast: 75 mL of IV Isovue-370. COMPARISON: 04/22/2019. FINDINGS: Liver: Negative. Gallbladder and bile ducts: Negative. Spleen: Negative. Pancreas: Negative. Adrenal glands: Negative. Kidneys: Negative. No hydronephrosis or urinary calculi. Bowel and peritoneum: There is a moderate amount of free intraperitoneal air throughout the abdomen and pelvis. In addition, there is a large amount of complex and loculated peritoneal fluid extending along the mid and lower abdomen, encasing bowel loops with significant peritoneal thickening and enhancement. Findings are compatible with a perforated viscus and peritonitis. Source is not clearly defined. This could potentially be related to the recent colonic anastomosis with anastomotic leak. Postsurgical changes in the abdomen. A significant portion of the colon is surgically absent with a colonic anastomosis in the midline lower abdomen as well as an additional ileocolonic anastomosis in the right lower abdomen. There is dilatation of multiple fluid- and air-filled small bowel loops throughout the abdomen and pelvis. There is narrowing along the distal small bowel adjacent to the colo-colonic anastomosis which may represent a site of obstruction. Alternatively dilatation could be due to the diffuse peritonitis and associated ileus. There is gaseous distention of a portion of the remaining colon in the mid right abdomen with a small volume of colonic stool. Pelvic structures: Negative. Lymph node assessment: Negative. Vessels: Negative. Musculoskeletal: Negative. Body wall: Negative. Lung bases: Mild atelectasis in the lung bases. IMPRESSION: 1. Surgical changes in the abdomen related to recent colonic resection with a colonic anastomosis in the mid lower abdomen. There is an additional prior ileocolonic anastomosis. 2. There is a moderate amount of free intraperitoneal air as well as a large amount of complex loculated peritoneal fluid throughout the mid and lower abdomen encasing bowel loops with peritoneal enhancement. Findings are compatible with a perforated viscus with diffuse peritonitis. Source of the perforation is not clearly defined but this could be arising from the colonic anastomosis. 3. There is dilatation of small bowel loops throughout the abdomen and pelvis. There is some narrowing of the distal small bowel near the colonic anastomosis. This could represent bowel obstruction, or dilatation could relate to a diffuse ileus from the peritonitis. There is gaseous distention of a portion of the remaining colon in the right abdomen with a small amount of colonic stool. Findings were discussed with ROBBIE VILLASENOR at 05/14/2019 7:54 PM. Report Dictated By: Blas Bustamante MD at 05/14/2019 7:34 PM ED Course/Re-evaluation Clinical Indication for ER IV: Hydration, IV Access ED Course Labs with mild elevation of CRP. Normal white count. No sign of sepsis. However CT shows what looks like bowel perforation with peritonitis. Patient very tender. Morphine has helped a little. Dr. Dan, general surgery, evaluated and will taking him to the OR for a washout, packing, leaving open, ICU admission, sedation/ventilator overnight and repeat OR visit tomorrow for re-evaluation. Decision to Disposition Date: May 14, 2019 Decision to Disposition Time: 20:02 Depart Departure Latest Vital Signs Vital Signs Date Time Temp Pulse Resp B/P (MAP) Pulse Ox O2 Delivery O2 Flow Rate FiO2 05/14/19 20:30 130/81 (97) 05/14/19 20:20 102 95 05/14/19 18:09 98.6 20 Room Air Impression: Primary Impression: Peritonitis Additional Impression: Bowel perforation Condition: Condition Unchanged Disposition: ADMIT FROM ER TO OR Problem Qualifiers ROBBIE VILLASENOR MD May 14, 2019 18:10
[2019-05-14] MEDS ORDERED: NS(*) 0.9% 1000 ML BAG 1,000 ML IV ONE (18:21)
[2019-05-14] MEDS ORDERED: ONDANSETRON 4 MG/2 ML VIAL IVP ONE (18:25)
[2019-05-14] MEDS ORDERED: MORPHINE 4 MG/ML SDV IVP ONE ×2 (18:25→20:10)
[2019-05-14] MEDS ORDERED: IOPAMIDOL 76% 100 ML INFUS BTL 100 ML ONE (18:32)
[2019-05-14 19:01] LABS: PLATELET COUNT, AUTOMATED 648 K/uL (150-450)
--- NOTE | 2019-05-14 20:02 | RADIOLOGY IMAGING REPORT ---
FACILITY: [facility] PATIENT NAME: Ez Smith : 1985 MR: [id number] V: [id number] EXAM DATE: ORDERING PHYSICIAN: ROBBIE VILLASENOR TECHNOLOGIST: Location: [facility] - [place] Patient: Ez Smith : 1985 Visit/Account:[id number] Date of Sevice: 05/14/2019 EXAMINATION: CT abdomen and pelvis with IV contrast HISTORY: Abdominal pain and distention. Surgery one month ago with partial colonic resection. TECHNIQUE: Axial CT images of the abdomen and pelvis were obtained with IV contrast, with coronal a nd sagittal 2D reconstructed images. One of the following dose optimization techniques was utilized in the performance of this exam: Autom ated exposure control; adjustment of the mA and/or kV according to the patient's size; or use of an i terative reconstruction technique. Specific details can be referenced in the facility's radiology C T exam operational policy. Contrast: 75 mL of IV Isovue-370. COMPARISON: 04/22/2019. FINDINGS: Liver: Negative. Gallbladder and bile ducts: Negative. Spleen: Negative. Pancreas: Negative. Adrenal glands: Negative. Kidneys: Negative. No hydronephrosis or urinary calculi. Bowel and peritoneum: There is a moderate amount of free intraperitoneal air throughout the abdomen and pelvis. In addition, there is a large amount of complex and loculated peritoneal fluid extending along the mid and lower abdomen, encasing bowel loops with significant peritoneal thickening and enha ncement. Findings are compatible with a perforated viscus and peritonitis. Source is not clearly defi christel. This could potentially be related to the recent colonic anastomosis with anastomotic leak. Postsurgical changes in the abdomen. A significant portion of the colon is surgically absent with a c olonic anastomosis in the midline lower abdomen as well as an additional ileocolonic anastomosis in t he right lower abdomen. There is dilatation of multiple fluid- and air-filled small bowel loops throughout the abdomen and pe lvis. There is narrowing along the distal small bowel adjacent to the colo-colonic anastomosis which may represent a site of obstruction. Alternatively dilatation could be due to the diffuse peritonitis and associated ileus. There is gaseous distention of a portion of the remaining colon in the mid rig ht abdomen with a small volume of colonic stool. Pelvic structures: Negative. Lymph node assessment: Negative. Vessels: Negative. Musculoskeletal: Negative. Body wall: Negative. Lung bases: Mild atelectasis in the lung bases. IMPRESSION: 1. Surgical changes in the abdomen related to recent colonic resection with a colonic anastomosis in the mid lower abdomen. There is an additional prior ileocolonic anastomosis. 2. There is a moderate amount of free intraperitoneal air as well as a large amount of complex locula satya peritoneal fluid throughout the mid and lower abdomen encasing bowel loops with peritoneal enhanc ement. Findings are compatible with a perforated viscus with diffuse peritonitis. Source of the perfo ration is not clearly defined but this could be arising from the colonic anastomosis. 3. There is dilatation of small bowel loops throughout the abdomen and pelvis. There is some narrowin g of the distal small bowel near the colonic anastomosis. This could represent bowel obstruction, or dilatation could relate to a diffuse ileus from the peritonitis. There is gaseous distention of a por tion of the remaining colon in the right abdomen with a small amount of colonic stool. Findings were discussed with ROBBIE VILLASENOR at 05/14/2019 7:54 PM. Report Dictated By: Blas Bustamante MD at 05/14/2019 7:34 PM Report E-Signed By: Blas Bustamante MD at 05/14/2019 7:55 PM WSN:[id number]
[2019-05-14] MEDS ORDERED: FAMOTIDINE(*) 20MG/50ML PREMIX 50 ML IVPB ONE (20:35)
[2019-05-14] MEDS ORDERED: NORMOSOL R SOLN(*) 1000 ML BAG 1,000 ML IV ONE (20:35)
--- NOTE | 2019-05-14 20:45 | Gen Surgery History & Physical ---
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 His post-operative course was mildly prolonged due to ileus and free air unknown etiology on post-op CT scan. He has been having limited bowel function since DC home several weeks ago. He presents today with increased severe abdominal pain, obstipation. ABD CT scan with large complex abscess, pneumoperitoneum and concern for anastomotic leak vs other perforated viscous. History Unable To Obtain Past Medical: Home Meds Active Scripts Pantoprazole Sodium (PANTOPRAZOLE SODIUM) 40 Mg Tablet.dr, 1 TAB PO DAILY, #30 CAP 2 Refills Prov:BHARATH SNYDER P 05/10/19 Zolpidem Tartrate (AMBIEN) 10 Mg Tablet, 1 TAB PO QHS PRN for INSOMNIA, #20 TAB Prov:BHARATH SNYDER P 05/10/19 Tramadol Hcl (TRAMADOL HCL) 50 Mg Tablet, 50 MG PO Q6H PRN for PAIN, #20 TAB Prov:BHARATH SNYDER P 04/26/19 Reported Medications Multivitamin (MULTIVITAMINS) 1 Each Capsule, 1 EACH PO QDAY, CAPSULE 03/01/19 Allergies: Coded Allergies: No Known Drug Allergies (Unverified , 03/01/19) Patient History: FH: breast cancer MOTHER Review of Systems All Systems Reviewed/Normal: Yes, Except as Noted Constitutional: Fever, Weight Loss Gastrointestinal: Other (see HPI) Exam General Appearance: Alert, Awake, Afebrile Neuro: No Gross deficits Cardiovascular: Normal Rhythm & Peripheral Pulses Respiratory: No Respiratory Distress, Clear to Auscultation GI: Other (abd tense, distended, diffusely tender, with + peritoneal signs; prior incision well healed LUQ) Musculoskeletal: No Weakness/Pain Integumentary: Skin Intact without Lesion / Mass Psych: Alert & Oriented X3, Appropriate Mood & Affect Medical Decision Making Data Points Result Diagram: 05/14/19182805/14/191828 EKG / Imaging Monitor Interpretation: Normal Sinus Rhythm Pre-Admit Course Medical Record Review: Yes Assessment and Plan Problems: (1) Peritonitis Status: Acute Assessment & Plan: 05/14/192044: Pt with massive intra-abd fluid, likely large loculated abscess with pneumoperitoneum with likely perforated viscous vs anastomotic leak. Pt recommended to undergo emergent exploratory laparotomy, possible bowel resection, possible ostomy, possible open abdomen with need for planned second look. Pt and understand he will be admitted to the ICU and likely will be on the ventilator post op. They have been offered transfer to another facility which they both decline. All questions answered, informed consent signed. Central Venous Access Medical Necessity for Access: IV Access Time Spent: > 30 min Critical Time Spent: 1st 30-74 Minutes Venous Thromboembolism VTE Risk Physician Assess for VTE Risk: Yes Patient's VTE Risk: High VTE Diagnostic Test 2 Days Prior to Admit: No Antithrombotics Is Pt On Any Antithrombotics?: No SURYA SUAREZ MD May 14, 2019 20:44
[2019-05-14] MEDS ORDERED: BUPIV/EPI 0.25% 1:200,000 50ML INFIL ONE (20:58)
[2019-05-14] MEDS ORDERED: FLUSH 10 ML SYR IVP PRN (21:10)
[2019-05-14] MEDS ORDERED: HYDROmorphone HCL 2 MG/ML SDV IVP PRN (21:10)
[2019-05-14] MEDS ORDERED: fentaNYL CITR 250 MCG/5 ML AMP ONE (21:36)
[2019-05-14] MEDS ORDERED: PROPOFOL EMUL(*) 10MG/ML 20 ML 20 ML ONE (23:05)
[2019-05-14] MEDS ORDERED: ONDANSETRON 4 MG/2 ML VIAL ONE (23:05)
[2019-05-14] MEDS ORDERED: ROCURONIUM BR 10 MG/ML ONE (23:05)
[2019-05-14] MEDS ORDERED: PROPOFOL EMUL(*) 10MG/ML 20 ML 80 ML ONE (23:06)
[2019-05-15] VITALS (95 sets, daily range): BP systolic 79–125; BP diastolic 48–81
[2019-05-15] MEDS ORDERED: PIPERACILLIN/TAZO*3.375GM VIAL 3.375 GM in NS(*) 0.9% 100 ML MINI-BAG 100 ML IVPB SCH
[2019-05-15] MEDS ORDERED: HYDROmorphone HCL 2 MG/ML SDV ONE (00:02)
[2019-05-15] MEDS ORDERED: KCL 2 MEQ/ML 20 MEQ/10 ML VIAL 20 MEQ in D5 1/2 NS(*) 1000 ML BAG 1,000 ML IV PRN (00:10)
--- NOTE | 2019-05-15 00:16 | Post Operative Progress Note ---
Post Operative Progress Note Date: May 14, 2019 Time: 23:57 Surgeon: Surya Dan MD and Aditya Dimas MD co-surgeons Anesthesia: GETA Dr Vargas Pre-Op Diagnosis: Peritonitis with loculated intra-abd abscess s/p sigmoid resection Post-Op Diagnosis: same, internal hernia at site of remote sigmoid colocolonic anastomosis in the right lower quadrant Findings: see dict op note, massively dilated small bowel, no fecal contamination, no evidence anastomotic leak Procedure(s): exploratory laparotomy, reduction of internal hernia, resection of remaining colon, end ileostomy, abdominal washout with abdomen packed open Specimen Removed:(May be N/A): colon Complications: none Total Tourniquet Time: NA Splint: NA Fluids: 3200 ml LR, 450 UOP Estimated Blood Loss: < 100 ml Medical Necessity-CL Access: Hemodynamic Monitoring, IV Access, Medication Administration Date OP Note Dictated: May 15, 2019 Time OP Note Dictated: 00:13 (op note dictated per Dr Dimas) SURYA DAN MD May 15, 2019 00:16
--- NOTE | 2019-05-15 00:56 | RADIOLOGY IMAGING REPORT ---
FACILITY: [facility] - [place] PATIENT NAME: Ez Smith : 1985 MR: [id number] V: [id number] EXAM DATE: ORDERING PHYSICIAN: SURYA SUAREZ TECHNOLOGIST: Location: [facility] - [place] Patient: Ez Smith : 1985 Visit/Account:[id number] Date of Sevice: 05/15/2019 EXAMINATION: Portable AP Chest 05/15/2019 12:15 AM HISTORY: sp intubation/lineplacement/ NG tube placement COMPARISON: 04/21/2019 FINDINGS: Cardiomediastinal contours: And tracheal tube tip is just over 3 cm above the bolivar. Nasogastric tub e is in the stomach with the tip in the pyloric area. Right IJ central venous catheter tip over the l ower SVC. Heart size is normal. Lungs and pleura: Low lung volumes with elevation of the left hemidiaphragm similar to previous. Mild markings in the left base are likely atelectasis. No pneumothorax. Bones/soft tissues: Normal Cardiac leads are present. IMPRESSION: 1. Support line and tube positions, as above. 2. Markings in the left base are likely atelectasis. Report Dictated By: Devonte Tejeda MD at 05/15/2019 12:47 AM Report E-Signed By: Devonte Tejeda MD at 05/15/2019 12:49 AM WSN:[id number]
--- NOTE | 2019-05-15 01:04 | Hospitalist Consultation ---
History of Present Illness Requesting Physician Sy Reason for Consult Ventilator Management History of Present Illness 34yo male with a h/o multiple surgeries/colonoscopies for complications with volvulus who presented with a perforated viscous. He had a wash out, resection of affected colon and ileostomy placed. He wasn't closed because he will go back tomorrow for further washout. He did well in the OR. Now he is in the ICU on the ventilator. History Problems: (1) Volvulus Status: Chronic Home Meds Active Scripts Pantoprazole Sodium (PANTOPRAZOLE SODIUM) 40 Mg Tablet.dr, 1 TAB PO DAILY, #30 CAP 2 Refills Prov:BHARATH SNYDER P 05/10/19 Zolpidem Tartrate (AMBIEN) 10 Mg Tablet, 1 TAB PO QHS PRN for INSOMNIA, #20 TAB Prov:BHARATH SNYDER P 05/10/19 Tramadol Hcl (TRAMADOL HCL) 50 Mg Tablet, 50 MG PO Q6H PRN for PAIN, #20 TAB Prov:BHARATH SNYDER P 04/26/19 Reported Medications Multivitamin (MULTIVITAMINS) 1 Each Capsule, 1 EACH PO QDAY, CAPSULE 03/01/19 Allergies: Coded Allergies: No Known Drug Allergies (Unverified , 03/01/19) Patient History: FH: breast cancer MOTHER Hx Smoking: No Smoking Status: Never Smoker Caffeine Intake: Coffee Caffeine/Cups Per Day: 1/TWICE A MONTH Hx Alcohol Use: Yes (OCC) Hx Substance Use Disorder: No Social Drug Use: Never Review of Systems Other He is intubated and sedated. He is unable to give ROS. Exam Vital Signs Vital Signs Date Time Temp Pulse Resp B/P (MAP) Pulse Ox O2 Delivery O2 Flow Rate FiO2 05/14/19 21:25 106 94 05/14/19 21:00 123/83 (96) 05/14/19 18:09 98.6 20 Room Air General Appearance: Other (Sedated and intubated) ENT: Moist Mucous Membranes Cardiovascular: Regular Rate and Rhythm (Borderline tachy) Respiratory: Clear to Auscultation GI: Other (ileostomy is in place and appears perfused. Large dressing over midabdomen.) Extremities: No Edema Medical Decision Making Data Points Result Diagram: 05/14/19 18205/14/191828 Item Value Date Time C-Reactive Protein 14.1 mg/dl H 05/14/191828 Total Bilirubin 1.2 mg/dl 05/14/191828 Aspartate Amino Transf (AST/SGOT) 21 U/L 05/14/191828 Alanine Aminotransferase (ALT/SGPT) 38 U/L 05/14/191828 Alkaline Phosphatase 73 U/L 05/14/191828 Amylase Level 70 U/L 05/14/191828 Lipase 92 U/L 05/14/191828 Neutrophils (%) (Auto) 74.1 % H 05/14/191828 Lymphocytes (%) (Auto) 9.1 % L 05/14/191828 Monocytes (%) (Auto) 8.4 % 05/14/191828 Eosinophils (%) (Auto) 7.8 % H 05/14/191828 Urine Ketones 20 mg/dL H 05/14/19 Urine Blood Negative 05/14/19 Urine Nitrite Negative 05/14/19 Urine Bilirubin Negative 05/14/19 Urine Urobilinogen Negative mg/dL 05/14/19 Urine Leukocyte Esterase Negative 05/14/19 Urine RBC <1 /HPF 05/14/19 EKG / Imaging Imaging Abd/Pelvis CT - 1. Surgical changes in the abdomen related to recent colonic resection with a colonic anastomosis in the mid lower abdomen. There is an a dditional prior ileocolonic anastomosis. 2. There is a moderate amount of free intraperitoneal air as well as a large amount of complex loculated peritoneal fluid throughout the mid and lower abdomen encasing bowel loops with peritoneal enhancement. Findings are compatible with a perforated viscus with diffuse peritonitis. Source of the perforation is not clearly defined but this could be arising from the colonic anastomosis. 3. There is dilatation of small bowel loops throughout the abdomen and pelvis. There is some narrowing of the distal small bowel near the colonic anastomosis. This could represent bowel obstruction, or dilatation could relate to a diffuse ileus from the peritonitis. There is gaseous distention of a portion of the remaining colon in the right abdomen with a small amount of colonic stool. Assessment and Plan Problems: (1) Bowel perforation Status: Acute Assessment & Plan: He presented with abdominal distention and pain. 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 He had a prolonged post-operative course secondary to ileus and persistent abdominal pain. He had an emergent exploratory laparotomy, bowel resection, and ileostomy on the evening of 05/14. He is going back to the OR on 05/15, so was not closed. He will be kept on the ventilator until the next surgery. He will be on SIMV rate of 12, Vt 600cc, PS 10, PEEP 5. So far his pe ak pressures are wnl. He is only requiring an FiO2 of 25%. He will be on Propofol for sedation. Dilaudid prn for perceived pain. Versed to be added for sedation if needed. BP/P stable. (2) Volvulus Status: Chronic Assessment & Plan: Multiple partial colon resections and colonoscopies for many years secondary complications with volvulus. See above. Central Venous Access Medical Necessity for Access: Hemodynamic Monitoring, IV Access, Medication Administration Copies to: BHARATH SNYDER; SURYA SUAREZ MD ; Venous Thromboembolism Antithrombotics Is Pt On Any Antithrombotics?: No Exam Sepsis Risk: No Definite Risk JOSSELIN COONEY MD May 15, 2019 01:04
[2019-05-15] MEDS: NS(*) 0.9% 500 ML BAG 500 ML IV PRN ×4 (02:02→05:49)
[2019-05-15] MEDS: PROPOFOL(*)1000 MG/100 ML VIAL 100 ML IV PRN ×5 (02:04→22:21)
--- NOTE | 2019-05-15 02:29 | NUR ---
was placed 05/14/2019 in OR Addendum: 05/15/19 at 0256 by QUAN HE RN Amended: Links added.
--- NOTE | 2019-05-15 02:35 | NUR ---
pt. is sedated and intubated, NPO Addendum: 05/15/19 at 0256 by QUAN HE RN Amended: Links added.
[2019-05-15] MEDS: PIPERACILLIN/TAZO*3.375GM VIAL 3.375 GM in NS(*) 0.9% 100 ML MINI-BAG 100 ML IVPB SCH ×4 (03:10→20:38)
--- NOTE | 2019-05-15 05:00 | EKG ---
FAC[place] [facility] [place] NAME: KAPIL ACEVES : [id number] MR: [id number] V: [id number] EXAM DATE: ORDERING PHYSICIAN: SURYA SUAREZ TECHNOLOGIST: PRISCILLA Test Reason : PRE-OP POSS. SEPSIS Blood Pressure : / mmHG Vent. Rate : 101 BPM Atrial Rate : 101 BPM P-R Int : 144 ms QRS Dur : 086 ms QT Int : 324 ms P-R-T Axes : 049 052 056 degrees QTc Int : 420 ms Sinus tachycardia Nonspecific T wave abnormality No previous ECGs available Confirmed by JOSSELIN COONEY ([id number]) on 05/15/2019 6:37:14 AM Referred By: DANIELA Confirmed By:JOSSELIN COONEY
[2019-05-15 05:11] LABS: INR 1.25
[2019-05-15 05:26] LABS: PLATELET COUNT, AUTOMATED 573 K/uL (150-450)
[2019-05-15] MEDS ORDERED: IV BOLUS 500 ML IVSOL IV ONE ×2 (05:45→20:20)
[2019-05-15] MEDS ORDERED: NS(*) 0.9% 1000 ML BAG 1,000 ML IV PRN ×2 (05:50→07:30)
--- NOTE | 2019-05-15 06:18 | RADIOLOGY IMAGING REPORT ---
FACILITY: [facility] - [place] PATIENT NAME: Ez Smith : 1985 MR: [id number] V: [id number] EXAM DATE: ORDERING PHYSICIAN: SURYA SUAREZ TECHNOLOGIST: Location: [facility] Patient: Ez Smith : 1985 Visit/Account:[id number] Date of Sevice: 05/15/2019 CHEST SINGLE AP 05/15/2019 05:00 hours. HISTORY: ET tube, NG tube, and central line placement. Follow-up. COMPARISON: Earlier same date at 12:34 AM and studies dating to 04/20/2019. TECHNIQUE: Portable AP view of the chest. FINDINGS: TUBES/LINES/HARDWARE: ET tube terminates 6 cm above the bolivar. NG tube terminates in the distal stom ach. Right IJ catheter terminates in the lower superior vena cava. There are external chest leads. PULMONARY/PLEURA: There is mild left hemidiaphragm elevation with adjacent mild atelectasis, unchange d. Right lung is clear. There is no pneumothorax or pleural effusion. CARDIOMEDIASTINAL: Cardiac and mediastinal silhouettes are within normal limits. BONES/SOFT TISSUES: No acute osseous abnormality. The visible abdomen is normal. IMPRESSION: 1. Stable mild left basilar atelectasis. No acute cardiopulmonary process. 2. Tubes and lines as above. Report Dictated By: Ambika Calderón at 05/15/2019 6:08 AM Report E-Signed By: Ambika Calderón at 05/15/2019 6:11 AM WSN:[id number]
[2019-05-15] MEDS ORDERED: LACT1CAP6 PO (06:40)
[2019-05-15] MEDS ORDERED: KCL/D1/2NS 20 MEQ 1000 ML 1,000 ML IV PRN (06:57)
[2019-05-15] MEDS ORDERED: NS(*) 0.9% 1000 ML BAG 1,000 ML IV ONE (07:00)
[2019-05-15] MEDS: ACETAMINOPHEN(*)1000 MG/100 ML 100 ML IVPB PRN (07:26)
[2019-05-15] MEDS: MIDAZOLAM 50 MG/10 ML VIAL 100 MG in NS(*) 0.9% 100 ML BAG 80 ML IV PRN (08:21)
[2019-05-15] MEDS: NS(*) 0.9% 1000 ML BAG 1,000 ML IV PRN ×6 (08:21→21:41)
--- NOTE | 2019-05-15 08:55 | General Surgery Progress Note ---
Subjective Progress Notes Subjective needed fluid boluses overnight. Physical Exam Vital Signs Date Time Temp Pulse Resp B/P (MAP) Pulse Ox O2 Delivery O2 Flow Rate FiO2 05/15/19 08:22 100.6 05/15/19 07:34 25.0 05/15/19 06:30 115 14 91/61 (71) 92 Mechanical Ventilator Intake and Output 05/15/19 07:02 Intake Total 2524 ml Output Total 785 ml Balance 1739 ml Intake IV Total 2524 ml Output Urine Total 285 ml Gastric Drainage Total 100 ml Drainage Total 400 ml General Appearance: Other (intubated, sedated) Cardiovascular: Other (tachycardic) GI: Other (abd soft, stoma pink, vac in place) Result Diagram: 05/15/1944905/15/19 045 Monitor Interpretation: Normal Sinus Rhythm Assessment and Plan Problems: (1) Peritonitis Status: Acute Assessment & Plan: 05/14/192044: Pt with massive intra-abd fluid, likely large loculated abscess with pneumoperitoneum with likely perforated viscous vs anastomotic leak. Pt recommended to undergo emergent exploratory laparotomy, possible bowel resection, possible ostomy, possible open abdomen with need for planned second look. Pt and understand he will be admitted to the ICU and likely will be on the ventilator post op. They have been offered transfer to another facility which they both decline. All questions answered, informed consent signed. 05/15/19: continue fluid resuscitation. cont abx until cultures return. start lovenox night. to OR tomorrow for second look and abd closure. Central Venous Access Medical Necessity for Access: Hemodynamic Monitoring, IV Access, Medication Administration Exam Sepsis Risk: No Definite Risk BHARATH SNYDER May 15, 2019 08:55
[2019-05-15] MEDS: PANTOPRAZOLE SOD 40 MG IV VIAL IVP SCH (09:12)
[2019-05-15] MEDS: ORAL SUCTION/CHLORHX/SWAB KIT MT SCH ×2 (09:15→20:37)
--- NOTE | 2019-05-15 11:52 | Hospitalist Progress Note ---
Subjective Progress Notes Subjective Remains intubated and sedated. CVP low, bolus being given. Physical Exam Vital Signs Date Time Temp Pulse Resp B/P (MAP) Pulse Ox O2 Delivery O2 Flow Rate FiO2 05/15/19 11:07 93 Mechanical Ventilator 30.0 05/15/19 10:15 90 11 90/55 (67) 05/15/19 10:00 98.6 Intake and Output 05/15/19 07:02 Intake Total 2524 ml Output Total 785 ml Balance 1739 ml Intake IV Total 2524 ml Output Urine Total 285 ml Gastric Drainage Total 100 ml Drainage Total 400 ml Cardiovascular: Normal Rhythm & Peripheral Pulses Respiratory: No Respiratory Distress (intubated and sedated) GI: Soft and Non-Tender (dressing in place) : Other (+ hodge) Extremities: Soft and Non Tender, Warm, Pulses, Perfused Result Diagram: 05/15/19 0450 05/15/19 045 Monitor Interpretation: Normal Sinus Rhythm Assessment and Plan Problems: (1) Bowel perforation Status: Acute Assessment & Plan: He presented with abdominal distention and pain. 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 He had a prolonged post-operative course secondary to ileus and persistent abdominal pain. He had an emergent exploratory laparotomy, bowel resection, and ileostomy on the evening of 05/14. BP low, CVP low, bolus given will increase fluid rate. If needed will give pressor support while giving volume as UOP decreased. Abdomen remains open, anticipate closure 15. (2) Volvulus Status: Chronic Assessment & Plan: Multiple partial colon resections and colonoscopies for many years secondary complications with volvulus. See above. Central Venous Access Medical Necessity for Access: Hemodynamic Monitoring, IV Access, Medication Administration Exam Sepsis Risk: Severe Sepsis Risk EPI RUBIN DO May 15, 2019 11:52
[2019-05-15] MEDS: NOREPINE BITAR* 4 MG/4 ML AMP 4 MG in D5W(*) 250 ML BAG 246 ML IV PRN ×2 (13:15→23:00)
--- NOTE | 2019-05-15 14:56 | Medical Nutrition Therapy ---
Nutrition Anthropometrics Height (Inches): 72.00 Height (Calculated Centimeters: 182.880608 Weight (Pounds): 174 Weight (Calculated Kilograms): 78.925 BMI: 23.6 [place] Nutrition Score: Adequate [place] Nutrition Risk Score: 21 Dietary Referral Nutrition Risk Factors: Mech. Ventilated Nutrition Risk Comment: Physical Findings Physical Appearance: WNR Skin Appearance Skin Appearance: Edema Edema Location Modifier: Edema Location: Type of Edema: Degree of Edema: Gastrointestinal Symptoms GI Symtoms: Tube Present: NG Bowel Sounds: Recent Bowel Pattern: Stool Characteristics: Nutritional Diagnosis Nutritional Risk Acuity 1: Peritonitis Nutritional Risk Acuity 4: Good Appetite Past Medical History: Hx of SBO, colon resections Nutritional Acuity: 1-High Nutrition Diagnosis: Increased Nutrient Needs, Altered GI Function Nutrition Etiology: Physiological Causes Nutrition Problem/Etiology/Sym: Peritonitis, s/p Ileostomy Energy Requirement: 2519 Protein Requirement: 80 (80-96 (1-1.2g/kg)) Fluid Requirement: 2519 (1mL/kcal) Nutrition Monitoring & Eval Nutrition Follow-Up: Poor Intake Nutrition Monitoring: Vent, Need for Nutrition Support RD Patient Assessment Time: [address] Assessment Type: RD Assessment Patient Nutrition Acuity: 1-High Follow Up Date: May 18, 2019 Nutritional Comment: 05/15/19-Reviewed current and past medical hx. Pertinent for multiple small bowel obstructions and volvulus. Pt found to have pertionitis and just had exploratory lap and ileostomy was placed. Pt currently on vent and sedated recieving only 63 kcal from propofol at 2.5 mL/hg. Recommend TPN for healing s/p laparotomy and hx of post op ileus. Will continue to monitor pt status and need for nutrition support.CHRISTOPHER QUEVEDO May 15, 2019 14:56
[2019-05-15 18:19] LABS: PLATELET COUNT, AUTOMATED 560 K/uL (150-450)
[2019-05-15] MEDS: ENOXAPARIN 40 MG/0.4ML SYR SC SCH (20:37)
[2019-05-16] VITALS (91 sets, daily range): BP systolic 92–117; BP diastolic 51–80
[2019-05-16] MEDS: PIPERACILLIN/TAZO*3.375GM VIAL 3.375 GM in NS(*) 0.9% 100 ML MINI-BAG 100 ML IVPB SCH ×4 (02:27→20:14)
[2019-05-16] MEDS: MIDAZOLAM 50 MG/10 ML VIAL 100 MG in NS(*) 0.9% 100 ML BAG 80 ML IV PRN (03:17)
[2019-05-16] MEDS: PROPOFOL(*)1000 MG/100 ML VIAL 100 ML IV PRN ×3 (04:47→22:44)
[2019-05-16] MEDS ORDERED: IV BOLUS 500 ML IVSOL IV ONE (05:20)
[2019-05-16 05:21] LABS: PLATELET COUNT, AUTOMATED 494 K/uL (150-450)
--- NOTE | 2019-05-16 08:02 | OPERATIVE REPORT 1 ---
EVENT DATE: May 14, 2019 SURGEON: Jamee Dan MD ANESTHESIOLOGIST: Anshul Vargas MD ANESTHESIA: General. BRANCH BILLING PAYROLL CLERK: Girish Dimas MD PREOPERATIVE DIAGNOSIS 1. Status post partial colon resection. 2. Intraabdominal fluid collection with peritonitis. 3. Dilated bowel. POSTOPERATIVE DIAGNOSIS 1. Status post partial colon resection. 2. Intraabdominal fluid collection with peritonitis. 3. Dilated bowel. PROCEDURE PERFORMED 1. Exploratory laparotomy. 2. Colon resection. 3. End-ileostomy creation. FLUIDS IV crystalloid. ESTIMATED BLOOD LOSS Less than 50 mL. SPECIMENS Right colon. COMPLICATIONS None. INDICATIONS This is a 34-year-old male with a history of colon volvulus. He had had three partial colon resection in the past. Most recently, he had a purse colon resection several weeks ago. It appeared he had an ileus after the colon resection. However, this resolved. He was eating and having bowel movements. Recently, the patient became very distended with abdominal pain and presented to the emergency department. CT scan showed dilated bowel as well as a large amount of fluid in the abdomen. Risk and benefits of the procedure were explained and consent was signed. DESCRIPTION OF PROCEDURE The patient was taken to the operating room and placed in the supine position. General anesthesia was administered per Anesthesia team. The patient was prepped and draped in normal sterile fashion. Laparotomy incision was made down the midline. Dissection was carried down through the subcutaneous tissue to the fascia with electrocautery. The fascia was carefully opened. The peritoneum was then carefully incised. The peritoneum was thick. This incision was then extended to the length of the skin incision. There was a large amount of thin straw-colored fluid in the abdomen. This was suctioned. This was sent for culture. The small bowel and the remainder of the colon was very dilated. Adhesions were taken down. This was done mostly bluntly with some cautery and also Metzenbaum scissors. The small intestine did pass through an internal hernia at the site beneath the colocolonic anastomosis. It did appear that the small intestine distal to this was more collapsed. However, the colon distal to this was very dilated, so it is unclear to what degree this internal hernia played a role in the patient's dilated bowel. We determined to remove the remainder of the colon as this was very dilated. The patient no longer had an ileocecal valve anyway. A 75 mm GI blue load was fired just distal to the anastomosis at the rectosigmoid junction. Electrocautery and LigaSure were then used to free the bowel from the terminal ileum to the remainder of the colon. The mesentery was divided with LigaSure. The GI blue load had been fired across the terminal ileum and this specimen was removed. The small intestine was run from the ligament of Treitz to the terminal ileum. There was no obstruction. A disc of skin was excised over the right rectus Dissection was carried down through the subcutaneous tissue with electrocautery. A cruciate incision was made through the anterior sheath and then the posterior sheath was opened. This was done to 3 finger breadths. The terminal ileum was then brought through the opening. Because the bowel was very dilated, a corner was taken off the staple line of the terminal ileum and the contents were milked down to this and suctioned decompressing the bowel. The stoma was matured in Noonan fashion with 3-0 Vicryl stitches. The abdomen was thoroughly irrigated with warm normal saline. A temporary closure was placed with a 10-10 drape with slits cut in it, towels and ALEJANDRA drains that would be hooked to suction. This was followed by an IO-ban. The patient tolerated the procedure well. There were no complications. MTDD
[2019-05-16] MEDS: PANTOPRAZOLE SOD 40 MG IV VIAL IVP SCH (08:30)
[2019-05-16] MEDS: ACETAMINOPHEN(*)1000 MG/100 ML 100 ML IVPB PRN ×2 (08:30→17:29)
--- NOTE | 2019-05-16 08:34 | Hospitalist Progress Note ---
Subjective Progress Notes Subjective He received fluid boluses during the night for decreased UOP and lower CVP's Physical Exam Vital Signs Date Time Temp Pulse Resp B/P (MAP) Pulse Ox O2 Delivery O2 Flow Rate FiO2 05/16/19 07:47 30.0 05/16/19 06:30 88 16 107/66 (80) 98 Mechanical Ventilator 05/16/19 06:00 99.0 Intake and Output 05/16/19 07:02 Intake Total 9634.8 ml Output Total 1190 ml Balance 8444.8 ml Intake Oral 0 ml IV Total 9634.8 ml Output Urine Total 940 ml Stool Total 200 ml Gastric Drainage Total 50 ml Drainage Total 0 ml # Bowel Movements 0 General Appearance: No Acute Distress Neuro: Other (Sedated and intubated) Cardiovascular: Regular Rate and Rhythm Respiratory: Clear to Auscultation (decreased BS in bases bilaterally) Extremities: No Edema Result Diagram: 05/16/19 0504 05/16/19 0504 Monitor Interpretation: Normal Sinus Rhythm Assessment and Plan Problems: (1) Bowel perforation Status: Acute Assessment & Plan: He presented with abdominal distention and pain. 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 He had a prolonged post-operative course secondary to ileus and persistent abdominal pain. He had an emergent exploratory laparotomy, bowel resection, and ileostomy on the evening of 05/14. Abdomen remains open, anticipate closure 05/16. On ventilator support for airway protection while sedated. Lovenox held this morning. Continue IV Protonix. He is oxygenating and ventilating easily on the ventilator. BP has been low normal requiring fluid boluses and norepinephrine. He is not septic, but likely having a lot of fluid loss from the open surgical area and is sensitive to Propofol and Versed. BUN/Cr wnl. CVP is currently 7. Will try to wean down norepinephrine and possibly Versed before surgery. He will likely remain on the ventilator after surgery with a planned extubation tomorrow. (2) Volvulus Status: Chronic Assessment & Plan: He has had multiple partial colon resections and colonoscopies for many years secondary to complications with volvulus. See above. Central Venous Access Medical Necessity for Access: Hemodynamic Monitoring, IV Access, Medication Administration Exam Sepsis Risk: No Definite Risk JOSSELIN COONEY MD May 16, 2019 08:34
[2019-05-16] MEDS: ORAL SUCTION/CHLORHX/SWAB KIT MT SCH ×2 (09:00→20:14)
--- NOTE | 2019-05-16 09:10 | General Surgery Progress Note ---
Subjective Progress Notes Subjective no acute events over night. adequate uop. Physical Exam Vital Signs Date Time Temp Pulse Resp B/P (MAP) Pulse Ox O2 Delivery O2 Flow Rate FiO2 05/16/19 08:53 30.0 05/16/19 08:47 88 05/16/19 07:30 94 Mechanical Ventilator 05/16/19 06:30 16 107/66 (80) 05/16/19 06:00 99.0 Intake and Output 05/16/19 07:02 Intake Total 9634.8 ml Output Total 1190 ml Balance 8444.8 ml Intake Oral 0 ml IV Total 9634.8 ml Output Urine Total 940 ml Stool Total 200 ml Gastric Drainage Total 50 ml Drainage Total 0 ml # Bowel Movements 0 General Appearance: Other (intubated and sedated) Cardiovascular: Other (reg rate) GI: Other (abd soft, stoma pink, 400 ml ostomy output) Result Diagram: 05/16/19 0504 05/16/19 0504 Monitor Interpretation: Normal Sinus Rhythm Assessment and Plan Problems: (1) Peritonitis Status: Acute Assessment & Plan: 05/14/192044: Pt with massive intra-abd fluid, likely large loculated abscess with pneumoperitoneum with likely perforated viscous vs anastomotic leak. Pt recommended to undergo emergent exploratory laparotomy, possible bowel resection, possible ostomy, possible open abdomen with need for planned second look. Pt and understand he will be admitted to the ICU and likely will be on the ventilator post op. They have been offered transfer to another facility which they both decline. All questions answered, informed consent signed. 05/15/19: continue fluid resuscitation. cont abx until cultures return. start lovenox night. to OR tomorrow for second look and abd closure. 05/16/19: improving. second look in OR today. cont abx, ivf. poss tpn tomorrow. Central Venous Access Medical Necessity for Access: Hemodynamic Monitoring, IV Access, Medication Administration Exam Sepsis Risk: No Definite Risk BHARATH SNYDER May 16, 2019 09:10
[2019-05-16] MEDS ORDERED: NORMOSOL R SOLN(*) 1000 ML BAG 1,000 ML IV ONE (09:20)
[2019-05-16] MEDS: HYDROmorphone HCL 2 MG/ML SDV IVP PRN ×3 (11:21→23:59)
[2019-05-16] MEDS: NS(*) 0.9% 1000 ML BAG 1,000 ML IV PRN (11:29)
[2019-05-16] MEDS ORDERED: PROPOFOL(*)1000 MG/100 ML VIAL 100 ML ONE (12:49)
--- NOTE | 2019-05-16 13:49 | Post Operative Progress Note ---
Post Operative Progress Note Date: May 16, 2019 Time: 13:40 Surgeon: dr. gisela bernal #[id number] It Consulting Director: none Anesthesia: gen dr. conroy Pre-Op Diagnosis: s/p ex lap, partial colon resection Post-Op Diagnosis: same Findings: viable bowel Procedure(s): 2nd look exploration, washout, abd closure Complications: none Estimated Blood Loss: minimal Date OP Note Dictated: May 16, 2019 Time OP Note Dictated: 13:41 BHARATH BERNAL May 16, 2019 13:49
--- NOTE | 2019-05-16 14:35 | OPERATIVE REPORT 1 ---
EVENT DATE: May 16, 2019 SURGEON: Girish Dimas MD ANESTHESIOLOGIST: Anshul Vargas MD ANESTHESIA: General. PREOPERATIVE DIAGNOSIS Status post exploratory laparotomy with partial colon resection. POSTOPERATIVE DIAGNOSIS Status post exploratory laparotomy with partial colon resection. PROCEDURE PERFORMED Second look exploration with washout and abdominal closure. FLUIDS IV crystalloid. ESTIMATED BLOOD LOSS Minimal. SPECIMENS None. COMPLICATIONS None. INDICATIONS This is a 34-year-old male with multiple partial colon resections in the past. He had an emergency partial colon resection two nights ago, and the purpose of this procedure is to wash out his abdomen, evaluate the viability of the bowel, and close the abdominal wound. Risks and benefits of the procedure were explained, and consent was signed. DESCRIPTION OF PROCEDURE Patient was taken to the operating room and placed in the supine position. General anesthesia was administered per the anesthesia team. Wound VAC was removed, as was the ostomy bag, and the abdomen was prepped and draped in normal sterile fashion. I broke up interloop adhesions bluntly and inspected the entire length of the small intestine, and while it was edematous, it was all viable. A small portion of the omentum was adhesed in the low abdomen, and this was divided with ligature. The abdomen was thoroughly irrigated. A 15-Polish ALEJANDRA drain was placed and brought out the left lower quadrant. The midline fascia was closed with running #1 PDS stitches that met in the middle. Darryl were used to close the skin. A 3-0 nylon stitch was used to secure the ALEJANDRA drain. Appropriate dressings were applied. Patient tolerated the procedure well. There were no complications. [facility]
--- NOTE | 2019-05-16 19:50 | Antimicrobial Stewardship ---
Antimicrobial Stewardship Empiricly appropriate: Yes Comment Started on Zosyn for peritonitis with bowel perforation. Now status post bowel re-section. Approriate Cultures done: Yes (NGTD) Renal/Hepatic dosing: Yes Reviewed for Drug Interaction: Yes Monitored for Toxicities: Yes IV to PO Opportunity: No Determine cumulative duration: individualized DIANA ESCOBAR May 16, 2019 19:50
[2019-05-16] MEDS: ENOXAPARIN 40 MG/0.4ML SYR SC SCH (20:15)
[2019-05-16] MEDS ORDERED: INS HUM REG* 100 U/ML(ER ONLY) 20 UNIT, MULTIVITAMINS(*) 10 ML VIAL 10 ML, TRACE METALS... IV SCH (21:30)
[2019-05-16] MEDS ORDERED: NS(*) 0.9% 500 ML BAG 500 ML IV PRN (21:41)
[2019-05-17] VITALS (79 sets, daily range): BP systolic 91–128; BP diastolic 55–87
[2019-05-17] MEDS: PIPERACILLIN/TAZO*3.375GM VIAL 3.375 GM in NS(*) 0.9% 100 ML MINI-BAG 100 ML IVPB SCH ×4 (02:44→21:09)
[2019-05-17] MEDS: HYDROmorphone HCL 2 MG/ML SDV IVP PRN ×3 (04:54→22:17)
[2019-05-17] MEDS: PROPOFOL(*)1000 MG/100 ML VIAL 100 ML IV PRN (04:55)
[2019-05-17 04:57] LABS: PLATELET COUNT, AUTOMATED 457 K/uL (150-450)
[2019-05-17] MEDS: NOREPINE BITAR* 4 MG/4 ML AMP 4 MG in D5W(*) 250 ML BAG 246 ML IV PRN (06:19)
[2019-05-17] MEDS ORDERED: FUROSEMIDE 40 MG/4 ML VIAL IVP ONE (07:55)
[2019-05-17] MEDS: ACETAMINOPHEN(*)1000 MG/100 ML 100 ML IVPB PRN ×2 (08:17→16:37)
[2019-05-17] MEDS: PANTOPRAZOLE SOD 40 MG IV VIAL IVP SCH (08:18)
[2019-05-17] MEDS: ORAL SUCTION/CHLORHX/SWAB KIT MT SCH (08:21)
[2019-05-17] MEDS ORDERED: INSULIN HUM REG 100 UN/ML 3 ML 10 UNIT, MULTIVITAMINS(*) 10 ML VIAL 10 ML, TRACE METALS... IV ONE (09:00)
--- NOTE | 2019-05-17 09:14 | Hospitalist Progress Note ---
Subjective Progress Notes Subjective This patient underwent surgery for bowel perforation and volvulus. He returned from the OR intubated. He had no acute issues overnight. Patient Complains of: Cardiovascular: No: Chest Pain Respiratory: No: Shortness of Breath Physical Exam Vital Signs Date Time Temp Pulse Resp B/P (MAP) Pulse Ox O2 Delivery O2 Flow Rate FiO2 05/17/19 07:45 91 14 97/56 (70) 93 05/17/19 07:31 30.0 05/17/19 07:30 98.8 Mechanical Ventilator Intake and Output 05/17/19 07:02 Intake Total 4187.0 ml Output Total 1174 ml Balance 3013.0 ml Intake Oral 0 ml IV Total 4187.0 ml Output Urine Total 839 ml Gastric Drainage Total 175 ml Drainage Total 160 ml # Bowel Movements 0 Neuro: Other (Sedated.) Cardiovascular: Regular Rate and Rhythm Respiratory: Other (Bilateral breath sounds present.) Extremities: No Edema Integumentary: No Cyanosis Result Diagram: 05/17/19 0447 05/17/19 0447 Monitor Interpretation: Normal Sinus Rhythm Assessment and Plan Problems: (1) Bowel perforation Status: Acute Assessment & Plan: He underwent 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 He had a prolonged post-operative course secondary to ileus and persistent abdominal pain. He had an emergent exploratory laparotomy, bowel resection, and ileostomy on the evening of 05/14 and closure on 05/16. (2) Volvulus Status: Chronic Assessment & Plan: He has had multiple partial colon resections and colonoscopies for many years secondary to complications with volvulus. (3) Acute respiratory failure Assessment & Plan: He has been on the ventilator since surgery. He is tolerating CPAP trials. We will plan to extubate today. (4) Hypotension Assessment & Plan: He did require a norepinephrine infusion for a short while. Central Venous Access Medical Necessity for Access: Hemodynamic Monitoring, IV Access, Medication Administration Exam Sepsis Risk: No Definite Risk DUNG DUVAL DO May 17, 2019 09:14
--- NOTE | 2019-05-17 09:37 | Medical Nutrition Therapy ---
Nutrition Anthropometrics Height (Inches): 72.00 Height (Calculated Centimeters: 182.800561 Weight (Pounds): 197 Weight (Calculated Kilograms): 89.701 BMI: 23.6 Leander Nutrition Score: Very Poor Leander Nutrition Risk Score: 14 Dietary Referral Nutrition Risk Factors: Mech. Ventilated Nutrition Risk Comment: Physical Findings Physical Appearance: WNR Skin Appearance Skin Appearance: Edema Edema Location Modifier: Edema Location: Type of Edema: Degree of Edema: Gastrointestinal Symptoms GI Symtoms: Tube Present: NG Bowel Sounds: Recent Bowel Pattern: Stool Characteristics: Nutrition/Food History Special Diet Prior Admit Fair Nutritional Diagnosis Nutritional Risk Acuity 1: Peritonitis Nutritional Risk Acuity 4: Good Appetite Past Medical History: Hx of SBO, colon resections Nutritional Acuity: 1-High Nutrition Diagnosis: Increased Nutrient Needs, Altered GI Function Nutrition Etiology: Physiological Causes Nutrition Problem/Etiology/Sym: Peritonitis, bowel perforation, s/p Ileostomy Energy Requirement: 2285 Protein Requirement: 103 ((1.3g/kg for surgery/perotonitis)) Fluid Requirement: 2519 (1mL/kcal) Nutritional Support Current Enteral / Parental: TPN Rate: Start at 42mL/hr advance to 86mL/hr continous Current Duration: 24 Current Calories: 1816 Current Protein: 103 Current Lipids Calories: 500 Total Current Calories: 2316 (Clinimix E + Lipid) Nutrition Monitoring & Eval Nutrition Monitoring: Monitor Potassium, Magnesium, Phosphorus, BGs, Triglycerides weekly, wt daily, fluid status RD Patient Assessment Time: [address] Assessment Type: Nutrition Support Consult Patient Nutrition Acuity: 1-High Follow Up Date: May 19, 2019 Nutritional Comment: 05/15/19-Reviewed current and past medical hx. Pertinent for multiple small bowel obstructions and volvulus. Pt found to have pertionitis and just had exploratory lap and ileostomy was placed. Pt currently on vent and sedated recieving only 63 kcal from propofol at 2.5 mL/hg. Recommend TPN for healing s/p laparotomy and hx of post op ileus. Will continue to monitor pt status and need for nutrition support.STAN 05/17/19: Started TPN at 0900, indication for TPN includes bowel perforation and hx of post op ileus. Starting TPN at 42 mL/hr x 24hrs and then advancing to goal rate of 86mL/hr continous. Running lipids IVPB at 20.83mL/hr x 12 hrs/day. Estimated energy needs are 2,285 kcal/day, 103 g Protein. Clinimix will provide 103g Protein (18% of total calories), 413g CHO (61% of total calories). Glucose infusion rate = 3.63 mg/kg/minute. Lipids provide 50g (500 kcal) 22% of total calories. At goal rate of 86 mL/hr meets 100% of estimated energy and protein needs. Will monitor electrolytes, triglycerides, BGs, weight, fluid status and provide recommendations as needed.CHRISTOPHER QUEVEDO May 17, 2019 09:37
[2019-05-17] MEDS ORDERED: INSULIN HUM LISPRO 100 UN/ML 3 ML VIAL SUBQ PRN (09:45)
[2019-05-17] MEDS: NS(*) 0.9% 1000 ML BAG 1,000 ML IV PRN (12:11)
--- NOTE | 2019-05-17 12:41 | General Surgery Progress Note ---
Subjective Progress Notes Subjective pt seen this am. no acute events overnight. uop adequate. Physical Exam Vital Signs Date Time Temp Pulse Resp B/P (MAP) Pulse Ox O2 Delivery O2 Flow Rate FiO2 05/17/19 12:04 80 05/17/19 12:00 98.2 19 98/67 (77) 96 Nasal Cannula 3.0 05/17/19 10:00 Intake and Output 05/17/19 07:02 Intake Total 4187.0 ml Output Total 1174 ml Balance 3013.0 ml Intake Oral 0 ml IV Total 4187.0 ml Output Urine Total 839 ml Gastric Drainage Total 175 ml Drainage Total 160 ml # Bowel Movements 0 General Appearance: Other (intubated and sedated) Cardiovascular: Other (reg rate) GI: Other (abd soft, inc c/d/i, stoma pink) Result Diagram: 05/17/1944605/17/19446 Monitor Interpretation: Normal Sinus Rhythm Assessment and Plan Problems: (1) Peritonitis Status: Acute Assessment & Plan: 05/14/192044: Pt with massive intra-abd fluid, likely large loculated abscess with pneumoperitoneum with likely perforated viscous vs anastomotic leak. Pt recommended to undergo emergent exploratory laparotomy, possible bowel resection, possible ostomy, possible open abdomen with need for planned second look. Pt and understand he will be admitted to the ICU and likely will be on the ventilator post op. They have been offered transfer to another facility which they both decline. All questions answered, informed consent signed. 05/15/19: continue fluid resuscitation. cont abx until cultures return. start lovenox night. to OR tomorrow for second look and abd closure. 05/16/19: improving. second look in OR today. cont abx, ivf. poss tpn tomorrow. 05/17/19: improving. likely extubated today. diurese. tpn. physical therapy. will discuss with hospitalist. Central Venous Access Medical Necessity for Access: Hemodynamic Monitoring, IV Access, Medication Administration Exam Sepsis Risk: No Definite Risk BHARATH SNYDER May 17, 2019 12:41
[2019-05-17] MEDS: KETOROLAC 30 MG/ML VIAL IVP PRN ×2 (13:10→19:44)
[2019-05-17] MEDS: FAT EMULSION 20% 250 ML BAG 250 ML IVPB SCH (15:25)
--- NOTE | 2019-05-17 16:09 | NUR ---
Physical Therapy Impression PT eval complete. Pt able to perform log roll with SBA for supine>sit and Min A for sit>supine for LEs. Pt able to stand with CGA and remain standing for 18 minutes with VSS. Recommendations pending progress. Physical Therapy Goals 1. Mod I bed mobility via log roll technique. 2. Mod I transfers. 3. Mod I gait x 150' with least restrictive device. Patient's Goals
[2019-05-17] MEDS: ENOXAPARIN 40 MG/0.4ML SYR SC SCH (21:10)
[2019-05-18] VITALS (16 sets, daily range): BP systolic 105–116; BP diastolic 66–78
[2019-05-18] MEDS: ACETAMINOPHEN(*)1000 MG/100 ML 100 ML IVPB PRN ×3 (00:36→17:30)
[2019-05-18] MEDS: PIPERACILLIN/TAZO*3.375GM VIAL 3.375 GM in NS(*) 0.9% 100 ML MINI-BAG 100 ML IVPB SCH ×4 (03:38→21:38)
[2019-05-18] MEDS: KETOROLAC 30 MG/ML VIAL IVP PRN ×3 (03:38→19:48)
[2019-05-18 04:59] LABS: PLATELET COUNT, AUTOMATED 417 K/uL (150-450)
--- NOTE | 2019-05-18 07:41 | General Surgery Progress Note ---
Subjective Progress Notes Subjective pain controlled Physical Exam Vital Signs Date Time Temp Pulse Resp B/P (MAP) Pulse Ox O2 Delivery O2 Flow Rate FiO2 05/18/19 06:00 98.8 78 21 108/69 (82) 92 Nasal Cannula 1.0 05/17/19 10:00 Intake and Output 05/18/19 07:02 Intake Total 2473.4 ml Output Total 4805 ml Balance -2331.6 ml IV Total 2473.4 ml Output Urine Total 4620 ml Gastric Drainage Total 150 ml Drainage Total 35 ml General Appearance: Alert, Awake Cardiovascular: Other (reg rate) Respiratory: No Respiratory Distress GI: Other (soft, stoma pink, stool in bag, inc c/d/i) Result Diagram: 05/18/196 05/18/196 Monitor Interpretation: Normal Sinus Rhythm Assessment and Plan Problems: (1) Peritonitis Status: Acute Assessment & Plan: 05/14/192044: Pt with massive intra-abd fluid, likely large loculated abscess with pneumoperitoneum with likely perforated viscous vs anastomotic leak. Pt recommended to undergo emergent exploratory laparotomy, possible bowel resection, possible ostomy, possible open abdomen with need for planned second look. Pt and understand he will be admitted to the ICU and likely will be on the ventilator post op. They have been offered transfer to another facility which they both decline. All questions answered, informed consent signed. 05/15/19: continue fluid resuscitation. cont abx until cultures return. start lovenox night. to OR tomorrow for second look and abd closure. 05/16/19: improving. second look in OR today. cont abx, ivf. poss tpn tomorrow. 05/17/19: improving. likely extubated today. diurese. tpn. physical therapy. will discuss with hospitalist. 05/18/19: improving. to med/surg floor today. oob to chair. cont tpn. likely clears tomorrow. Central Venous Access Medical Necessity for Access: Hemodynamic Monitoring, IV Access, Medication Administration Exam Sepsis Risk: No Definite Risk BHARATH SNYDER May 18, 2019 07:41
[2019-05-18] MEDS: PANTOPRAZOLE SOD 40 MG IV VIAL IVP SCH (08:21)
[2019-05-18] MEDS: INSULIN HUM REG 100 UN/ML 3 ML 20 UNIT, MULTIVITAMINS(*) 10 ML VIAL 10 ML, TRACE METALS... IV SCH (08:33)
--- NOTE | 2019-05-18 11:23 | Hospitalist Progress Note ---
Subjective Progress Notes Subjective VALENTINA overnight, progressing well. Transfer to floor today. Patient Complains of: Gastrointestinal: Other (+ ostomy output); No Nausea, No Vomiting Physical Exam Vital Signs Date Time Temp Pulse Resp B/P (MAP) Pulse Ox O2 Delivery O2 Flow Rate FiO2 05/18/19 10:05 78 05/18/19 10:00 20 114/73 (87) 91 Nasal Cannula 1.0 05/18/19 09:00 98.4 05/17/19 10:00 Intake and Output 05/18/19 07:03 Intake Total 2473.4 ml Output Total 4805 ml Balance -2331.6 ml IV Total 2473.4 ml Output Urine Total 4620 ml Gastric Drainage Total 150 ml Drainage Total 35 ml General Appearance: Alert, Awake, No Acute Distress, Afebrile Neuro: No Gross deficits Cardiovascular: Normal Rhythm & Peripheral Pulses Respiratory: No Respiratory Distress GI: Other (Ostomy with some output, midline incision clean, dry, intact dressing.) Extremities: Soft and Non Tender, Warm, Pulses, Perfused; No Edema Result Diagram: 05/18/19 0446 05/18/19 0446 Monitor Interpretation: Normal Sinus Rhythm Assessment and Plan Problems: (1) Bowel perforation Status: Acute Assessment & Plan: He underwent 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 He had a prolonged post-operative course secondary to ileus and persistent abdominal pain. He had an emergent exploratory laparotomy, bowel resection, and ileostomy on the evening of 05/14 and closure on 05/16. Improving (2) Volvulus Status: Chronic Assessment & Plan: He has had multiple partial colon resections and colo noscopies for many years secondary to complications with volvulus. (3) Acute respiratory failure Assessment & Plan: Extubated 05.17, doing well. Minimal supplemental O2 needed. (4) Hypotension Assessment & Plan: Resolved. He did require a norepinephrine infusion for a short while. Central Venous Access Medical Necessity for Access: Hemodynamic Monitoring, IV Access, Medication Administration Exam Sepsis Risk: No Definite Risk BURNS EPI LYONS DO May 18, 2019 11:23
--- NOTE | 2019-05-18 12:37 | NUR ---
Physical Therapy Impression Pt with improved tolerance to activity today. Pt demonstrated slowness with all functional mobility but is able to perform log roll, sit<>stand, and ambulation with CGA/SBA and good overall tolerance. PT to continue to follow. Physical Therapy Goals 1. Mod I bed mobility via log roll technique. 2. Mod I transfers. 3. Mod I gait x 150' with least restrictive device. Patient's Goals
[2019-05-18] MEDS: FAT EMULSION 20% 250 ML BAG 250 ML IVPB SCH (16:09)
[2019-05-18] MEDS: ENOXAPARIN 40 MG/0.4ML SYR SC SCH (21:38)
[2019-05-18] MEDS: NS(*) 0.9% 1000 ML BAG 1,000 ML IV PRN (21:38)
[2019-05-19] MEDS: ACETAMINOPHEN(*)1000 MG/100 ML 100 ML IVPB PRN ×2 (01:34→22:27)
[2019-05-19] MEDS: PIPERACILLIN/TAZO*3.375GM VIAL 3.375 GM in NS(*) 0.9% 100 ML MINI-BAG 100 ML IVPB SCH ×4 (03:00→21:27)
[2019-05-19 03:12] VITALS: BP 115/77
[2019-05-19] MEDS ORDERED: ALTEPLASE RECOMB 2 MG VIAL IVP ONE ×2 (05:35→08:20)
[2019-05-19] MEDS ORDERED: WATER STERILE(*) 10 ML VIAL 10 ML ONE (05:38)
[2019-05-19 07:25] VITALS: BP 115/82
--- NOTE | 2019-05-19 07:30 | General Surgery Progress Note ---
Subjective Progress Notes Subjective ambulated yesterday. good uop. Physical Exam Vital Signs Date Time Temp Pulse Resp B/P (MAP) Pulse Ox O2 Delivery O2 Flow Rate FiO2 05/19/19 07:25 99.0 76 15 115/82 (93) 94 Nasal Cannula 1.0 05/17/19 10:00 Intake and Output 05/19/19 07:03 Intake Total 1747 ml Output Total 6670 ml Balance -4923 ml IV Total 1747 ml Output Urine Total 3750 ml Stool Total 2475 ml Gastric Drainage Total 400 ml Drainage Total 45 ml General Appearance: No Acute Distress Cardiovascular: Other (reg rate) GI: Other (abd soft, stoma pink, liquid stool in stoma, serosang from richard) Result Diagram: 05/18/19 0446 05/19/19 0515 Monitor Interpretation: Normal Sinus Rhythm Assessment and Plan Problems: (1) Peritonitis Status: Acute Assessment & Plan: 05/14/192044: Pt with massive intra-abd fluid, likely large loculated abscess with pneumoperitoneum with likely perforated viscous vs anastomotic leak. Pt recommended to undergo emergent exploratory laparotomy, possible bowel resection, possible ostomy, possible open abdomen with need for planned second look. Pt and understand he will be admitted to the ICU and likely will be on the ventilator post op. They have been offered transfer to another facility which they both decline. All questions answered, informed consent signed. 05/15/19: continue fluid resuscitation. cont abx until cultures return. start lovenox night. to OR tomorrow for second look and abd closure. 05/16/19: improving. second look in OR today. cont abx, ivf. poss tpn tomorrow. 05/17/19: improving. likely extubated today. diurese. tpn. physical therapy. will discuss with hospitalist. 05/18/19: improving. to med/surg floor today. oob to chair. cont tpn. likely clears tomorrow. 05/19/19: continues to improve. ambulate. ice chips. cont lovenox. will d/c ayesha, richard, and ngt soon. Central Venous Access Medical Necessity for Access: Hemodynamic Monitoring, IV Access, Medication Administration Exam Sepsis Risk: No Definite Risk BHARATH SNYDER May 19, 2019 07:30
[2019-05-19] MEDS: PANTOPRAZOLE SOD 40 MG IV VIAL IVP SCH (08:18)
--- NOTE | 2019-05-19 08:51 | NUR ---
Physical Therapy Impression Patient presents in room with nursing present. Nursing requests that he do bed exercises only as he had just walked and was receiving meds through his IV. Patient performed supine bed exercises including ankle pumps, quad and glute sets, SLR, hip abd, SAQ, heel slides, and bridges x 5 all other exercises x 10 reps. Patient and family education on care at home and taking it slowly and recovery education. Patient left in room in bed with all needs met and family and nursing present. Physical Therapy Goals 1. Mod I bed mobility via log roll technique. 2. Mod I transfers. 3. Mod I gait x 150' with least restrictive device. Patient's Goals
[2019-05-19] MEDS: INSULIN HUM REG 100 UN/ML 3 ML 20 UNIT, MULTIVITAMINS(*) 10 ML VIAL 10 ML, TRACE METALS... IV SCH (08:58)
--- NOTE | 2019-05-19 10:56 | Hospitalist Progress Note ---
Subjective Progress Notes Subjective He has no complaints this morning. He had no acute events overnight. Patient Complains of: Cardiovascular: No: Chest Pain Respiratory: No: Shortness of Breath Physical Exam Vital Signs Date Time Temp Pulse Resp B/P (MAP) Pulse Ox O2 Delivery O2 Flow Rate FiO2 05/19/19 07:25 99.0 76 15 115/82 (93) 94 Nasal Cannula 1.0 05/17/19 10:00 Intake and Output 05/19/19 07:03 Intake Total 1747 ml Output Total 6670 ml Balance -4923 ml IV Total 1747 ml Output Urine Total 3750 ml Stool Total 2475 ml Gastric Drainage Total 400 ml Drainage Total 45 ml General Appearance: Alert, Awake, No Acute Distress Neuro: No Gross deficits Cardiovascular: Regular Rate and Rhythm Respiratory: No Respiratory Distress, Clear to Auscultation Extremities: Warm, Perfused; No Edema Psych: Alert & Oriented X3, Appropriate Mood & Affect Result Diagram: 05/18/19 0446 05/19/19 0515 Monitor Interpretation: Normal Sinus Rhythm Assessment and Plan Problems: (1) Bowel perforation Status: Acute Assessment & Plan: He underwent 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 He had a prolonged post-operative course secondary to ileus and persistent abdominal pain. He had an emergent exploratory laparotomy, bowel resection, and ileostomy on the evening of 05/14 and closure on 05/16. Improving. At this time hospitalist will sign off to general surgery. If there are any further needs, please don't hesitate to contact Hospitalist. (2) Volvulus Status: Chronic Assessment & Plan: He has had multiple partial colon resections and colonoscopies for many years secondary to complications with volvulus. (3) Acute respiratory failure Assessment & Plan: Extubated 05.17, doing well. Minimal supplemental O2 needed. (4) Hypotension Assessment & Plan: Resolved. He did require a norepinephrine infusion for a short while. Central Venous Access Medical Necessity for Access: Hemodynamic Monitoring, IV Access, Medication Administration Exam Sepsis Risk: No Definite Risk ALONZO SHI WEBBING TACKER May 19, 2019 10:56
[2019-05-19 11:49] VITALS: BP 124/78
[2019-05-19 15:20] VITALS: BP 123/78
--- NOTE | 2019-05-19 15:25 | Medical Nutrition Therapy ---
Nutrition Anthropometrics Height (Inches): 72.00 Height (Calculated Centimeters: 182.230772 Weight (Pounds): 189 Weight (Calculated Kilograms): 85.814 BMI: 25.7 Leander Nutrition Score: Probably Inadequate Leander Nutrition Risk Score: 18 Dietary Referral Nutrition Risk Factors: Mech. Ventilated Nutrition Risk Comment: Nutritional Diagnosis Nutritional Risk Acuity 1: TPN/PPN, Peritonitis Past Medical History: Hx of SBO, colon resections Nutritional Acuity: 1-High Nutrition Diagnosis: Increased Nutrient Needs, Altered GI Function Nutrition Etiology: Physiological Causes Nutrition Problem/Etiology/Sym: Peritonitis, bowel perforation, s/p Ileostomy Energy Requirement: 2285 Protein Requirement: 103 ((1.3g/kg for surgery/perotonitis)) Fluid Requirement: 2519 (1mL/kcal) Diet Type: TPN/PPN Nutrition Intervention: Nutrition support, Incr diet as tolerated Nutritional Support Current Enteral / Parental: TPN Rate: Start at 42mL/hr advance to 86mL/hr continous Current Duration: 24 Current Calories: 1816 Current Protein: 103 Current Lipids Calories: 500 Total Current Calories: 2316 (Clinimix E + Lipid) Nutritional Education Nutrition Education Topic: Other (ileostomy ) Learning Readiness: Interested Teaching Methods: Discussion, Handout Response to Teaching: Reinforcement needed Teaching Recipient: Patient Nutrition Counseling: Brief reviewed of diet for ileostomy with pt. Pt requested come back and review with pt and . Nutrition Monitoring & Eval RD Patient Assessment Time: [address] Assessment Type: RD Education Patient Nutrition Acuity: 1-High Follow Up Date: May 20, 2019 Nutritional Comment: 05/15/19-Reviewed current and past medical hx. Pertinent for multiple small bowel obstructions and volvulus. Pt found to have pertionitis and just had exploratory lap and ileostomy was placed. Pt currently on vent and sedated recieving only 63 kcal from propofol at 2.5 mL/hg. Recommend TPN for healing s/p laparotomy and hx of post op ileus. Will continue to monitor pt status and need for nutrition support.STAN 05/17/19: Started TPN at 0900, indication for TPN includes bowel perforation and hx of post op ileus. Starting TPN at 42 mL/hr x 24hrs and then advancing to goal rate of 86mL/hr continous. Running lipids IVPB at 20.83mL/hr x 12 hrs/day. Estimated energy needs are 2,285 kcal/day, 103 g Protein. Clinimix will provide 103g Protein (18% of total calories), 413g CHO (61% of total calories). Glucose infusion rate = 3.63 mg/kg/minute. Lipids provide 50g (500 kcal) 22% of total calories. At goal rate of 86 mL/hr meets 100% of estimated energy and protein needs. Will monitor electrolytes, triglycerides, BGs, weight, fluid status and provide recommendations as needed.STAN 05/19 Pt cont on TPN and lipids which meet nutrtional needs. Provided handout for diet with ileostomy and brief review. Pt requested to return and provide education for pt and . Wt up 4kg from admit. Pre-alb low at 3.4, alb low at 2, CRP cont elevated at 14.1. Will cont to monitor. SHIVA NGUYEN May 19, 2019 15:25
[2019-05-19] MEDS: FAT EMULSION 20% 250 ML BAG 250 ML IVPB SCH (15:33)
[2019-05-19 18:58] VITALS: BP 114/80
[2019-05-19] MEDS ORDERED: ALTEPLASE RECOMB 2 MG VIAL IVP PRN (20:25)
[2019-05-19] MEDS: ENOXAPARIN 40 MG/0.4ML SYR SC SCH (21:27)
[2019-05-19] MEDS: ZOLPIDEM TARTRATE 10 MG TAB PO PRN (21:27)
[2019-05-19 23:05] VITALS: BP 130/83
[2019-05-20 02:33] VITALS: BP 123/81
[2019-05-20] MEDS: PIPERACILLIN/TAZO*3.375GM VIAL 3.375 GM in NS(*) 0.9% 100 ML MINI-BAG 100 ML IVPB SCH ×4 (02:40→21:21)
[2019-05-20 05:39] LABS: PLATELET COUNT, AUTOMATED 480 K/uL (150-450)
[2019-05-20 07:20] VITALS: BP 119/87
[2019-05-20] MEDS: PANTOPRAZOLE SOD 40 MG IV VIAL IVP SCH (09:29)
[2019-05-20] MEDS: INSULIN HUM REG 100 UN/ML 3 ML 20 UNIT, MULTIVITAMINS(*) 10 ML VIAL 10 ML, TRACE METALS... IV SCH (09:41)
--- NOTE | 2019-05-20 10:30 | General Surgery Progress Note ---
Subjective Progress Notes Subjective Feeling better everyday. No complaints. Physical Exam Vital Signs Date Time Temp Pulse Resp B/P (MAP) Pulse Ox O2 Delivery O2 Flow Rate FiO2 05/20/19 07:20 99.5 95 15 119/87 (98) 93 Nasal Cannula 1.0 05/17/19 10:00 Intake and Output 05/20/19 07:03 Intake Total 2895 ml Output Total 7840 ml Balance -4945 ml Intake Oral 218 ml IV Total 2677 ml Output Urine Total 5900 ml Stool Total 1900 ml Drainage Total 40 ml General Appearance: Alert, Awake, No Acute Distress, Afebrile Neuro: No Gross deficits ENT: Moist Mucous Membranes Cardiovascular: Normal Rhythm & Peripheral Pulses Respiratory: No Respiratory Distress, Clear to Auscultation GI: Soft and Non-Tender ( Bowel sounds active. Ileostomy functioning well. Incision without evidence of infection. Daniel drain output serous, and decreasing) Extremities: Soft and Non Tender Psych: Alert & Oriented X3, Appropriate Mood & Affect Result Diagram: 05/20/1951605/20/19516 Monitor Interpretation: Normal Sinus Rhythm Assessment and Plan Problems: (1) Peritonitis Status: Acute Assessment & Plan: 05/14/192044: Pt with massive intra-abd fluid, likely large loculated abscess with pneumoperitoneum with likely perforated viscous vs anastomotic leak. Pt recommended to undergo emergent exploratory laparotomy, possible bowel resection, possible ostomy, possible open abdomen with need for planned second look. Pt and understand he will be admitted to the ICU and likely will be on the ventilator post op. They have been offered transfer to another facility which they both decline. All questions answered, informed consent signed. 05/15/19: continue fluid resuscitation. cont abx until cultures return. start lovenox night. to OR tomorrow for second look and abd closure. 05/16/19: improving. second look in OR today. cont abx, ivf. poss tpn tomorrow. 05/17/19: improving. likely extubated today. diurese. tpn. physical therapy. will discuss with hospitalist. 05/18/19: improving. to med/surg floor today. oob to chair. cont tpn. likely clears tomorrow. 05/19/19: continues to improve. ambulate. ice chips. cont lovenox. will d/c ayesha, daniel, and ngt soon. 05/20/19: Continues to improve. Voss and NGT removed. Okay for patient to shower today. Encouraged to ambulate in the leal at least 4 times today. Continue current VTE prophylaxis. Clear liquids today, will advance diet slowly over the next few days. Will plan on removing DANIEL tomorrow if output continues to decrease. Recheck labs in am. Central Venous Access Medical Necessity for Access: Hemodynamic Monitoring, IV Access, Medication Administration Time Spent: < 30 min Exam Sepsis Risk: No Definite Risk CARLOS A BREWER MD May 20, 2019 10:30
--- NOTE | 2019-05-20 10:33 | NUR ---
Physical Therapy Impression Patient presents in room and is agreeable to therapy he is in chair without NG tube and catheter as these were discharged. Patient needed to use urinal prior to therapy. Patient then ambulated ~130 feet and performed platform step x 4 reps. On two reps patient used FWW with CGA and cuing for sequencing and technique on one rep he used single TUBE AND ROD STRAIGHTENER and on the other rep he used double TUBE AND ROD STRAIGHTENER. Tried different ways as patient was not sure walker would fit on step. Patient demonstrated safe technique with platform step. Patient had improved progress, strength, and balance. Physical Therapy Goals 1. Mod I bed mobility via log roll technique. 2. Mod I transfers. 3. Mod I gait x 150' with least restrictive device. Patient's Goals
[2019-05-20 11:46] VITALS: BP 118/83
--- NOTE | 2019-05-20 11:59 | Medical Nutrition Therapy ---
Nutrition Anthropometrics Height (Inches): 72.00 Height (Calculated Centimeters: 182.608126 Weight (Pounds): 184 Weight (Calculated Kilograms): 83.716 BMI: 25.7 Leander Nutrition Score: Probably Inadequate Leander Nutrition Risk Score: 18 Dietary Referral Nutrition Risk Factors: Mech. Ventilated Nutrition Risk Comment: Physical Findings Physical Appearance: WNR Skin Appearance Skin Appearance: Edema Edema Location Modifier: Edema Location: Type of Edema: Degree of Edema: Gastrointestinal Symptoms GI Symtoms: Change in Bowel Pattern Tube Present: NG Bowel Sounds: Recent Bowel Pattern: Stool Characteristics: Nutritional Diagnosis Nutritional Risk Acuity 1: TPN/PPN, Peritonitis Past Medical History: Hx of SBO, colon resections Nutritional Acuity: 1-High Nutrition Diagnosis: Increased Nutrient Needs, Altered GI Function Nutrition Etiology: Physiological Causes Nutrition Problem/Etiology/Sym: Peritonitis, bowel perforation, s/p Ileostomy Energy Requirement: 2285 Protein Requirement: 103 ((1.3g/kg for surgery/perotonitis)) Fluid Requirement: 2519 (1mL/kcal) Diet Type: TPN/PPN Nutrition Intervention: Nutrition support, Incr diet as tolerated Nutritional Education Nutrition Education Topic: Other Learning Readiness: Eager, Interested Teaching Methods: Discussion, Handout Response to Teaching: Verbalize understanding Teaching Recipient: Patient, Family, Significant Other Nutrition Counseling: RD provided a hand out on ileostomy diets and had a conversation with pt and family. Went over tips for pts with new ileostomies and foods that cause gas, blockage, diarrhea ect. Pt family was present, and RD answered questions. RD left contact information so that they can schedule an outpatient follow up. -AKG Nutrition Monitoring & Eval RD Patient Assessment Time: [address] Assessment Type: RD Education Patient Nutrition Acuity: 1-High Follow Up Date: May 22, 2019 Nutritional Comment: 05/15/19-Reviewed current and past medical hx. Pertinent for multiple small bowel obstructions and volvulus. Pt found to have pertionitis and just had exploratory lap and ileostomy was placed. Pt currently on vent and sedated recieving only 63 kcal from propofol at 2.5 mL/hg. Recommend TPN for healing s/p laparotomy and hx of post op ileus. Will continue to monitor pt status and need for nutrition support.STAN 05/17/19: Started TPN at 0900, indication for TPN includes bowel perforation and hx of post op ileus. Starting TPN at 42 mL/hr x 24hrs and then advancing to goal rate of 86mL/hr continous. Running lipids IVPB at 20.83mL/hr x 12 hrs/day. Estimated energy needs are 2,285 kcal/day, 103 g Protein. Clinimix will provide 103g Protein (18% of total calories), 413g CHO (61% of total calories). Glucose infusion rate = 3.63 mg/kg/minute. Lipids provide 50g (500 kcal) 22% of total calories. At goal rate of 86 mL/hr meets 100% of estimated energy and protein needs. Will monitor electrolytes, triglycerides, BGs, weight, fluid status and provide recommendations as needed.STAN 05/19 Pt cont on TPN and lipids which meet nutrtional needs. Provided handout for diet with ileostomy and brief review. Pt requested to return and provide education for pt and . Wt up 4kg from admit. Pre-alb low at 3.4, alb low at 2, CRP cont elevated at 14.1. Will cont to monitor. BK 05/20 RD followed up to provided education to pt and family. Family and pt verbalized understanding, and RD left them with a handout and contact information to schedule an outpatient follow up if needed. -GREGORY WRIGHT May 20, 2019 11:59
[2019-05-20] MEDS: ACETAMINOPHEN(*)1000 MG/100 ML 100 ML IVPB PRN ×2 (12:04→21:20)
[2019-05-20] MEDS: NS(*) 0.9% 1000 ML BAG 1,000 ML IV PRN (12:48)
[2019-05-20] MEDS: FAT EMULSION 20% 250 ML BAG 250 ML IVPB SCH (15:34)
[2019-05-20 15:44] VITALS: BP 115/75
[2019-05-20 19:10] VITALS: BP 115/81
[2019-05-20] MEDS: ENOXAPARIN 40 MG/0.4ML SYR SC SCH (21:20)
[2019-05-20] MEDS: ZOLPIDEM TARTRATE 10 MG TAB PO PRN (21:20)
[2019-05-21] VITALS (7 sets, daily range): BP systolic 96–118; BP diastolic 67–87
[2019-05-21] MEDS: PIPERACILLIN/TAZO*3.375GM VIAL 3.375 GM in NS(*) 0.9% 100 ML MINI-BAG 100 ML IVPB SCH ×2 (03:06→09:00)
[2019-05-21 05:52] LABS: PLATELET COUNT, AUTOMATED 537 K/uL (150-450)
[2019-05-21] MEDS: PANTOPRAZOLE SOD 40 MG IV VIAL IVP SCH (08:59)
[2019-05-21] MEDS ORDERED: APAP/HYDROCODONE 325/5 TAB PO PRN (09:50)
--- NOTE | 2019-05-21 10:37 | General Surgery Progress Note ---
Subjective Progress Notes Subjective Feeling good, tolerating clear liquids,voiding without difficulty. Denies any significant pain. Physical Exam Vital Signs Date Time Temp Pulse Resp B/P (MAP) Pulse Ox O2 Delivery O2 Flow Rate FiO2 05/21/19 08:23 97.7 81 16 109/70 (83) 95 Room Air 05/20/19 07:20 1.0 05/17/19 10:00 Intake and Output 05/21/19 07:03 Intake Total 2642 ml Output Total 5035 ml Balance -2393 ml Intake Oral 580 ml IV Total 2062 ml Output Urine Total 3525 ml Stool Total 1475 ml Drainage Total 35 ml # Voids 3 General Appearance: Alert, Awake, No Acute Distress, Afebrile Neuro: No Gross deficits ENT: Moist Mucous Membranes Cardiovascular: Normal Rhythm & Peripheral Pulses Respiratory: No Respiratory Distress, Clear to Auscultation GI: Soft and Non-Tender (Bowel sounds active, stoma pink and functioning. RICHARD serous and only 35 ml past 24 hours, so drain to be removed today) Extremities: Soft and Non Tender Psych: Alert & Oriented X3, Appropriate Mood & Affect Result Diagram: 05/21/1952705/21/19527 Monitor Interpretation: Normal Sinus Rhythm Assessment and Plan Problems: (1) Peritonitis Status: Acute Assessment & Plan: 05/14/192044: Pt with massive intra-abd fluid, likely large loculated abscess with pneumoperitoneum with likely perforated viscous vs anastomotic leak. Pt recommended to undergo emergent exploratory laparotomy, possible bowel resection, possible ostomy, possible open abdomen with need for planned second look. Pt and understand he will be admitted to the ICU and likely will be on the ventilator post op. They have been offered transfer to another facility which they both decline. All questions answered, informed consent signed. 05/15/19: continue fluid resuscitation. cont abx until cultures return. start lovenox night. to OR tomorrow for second look and abd closure. 05/16/19: improving. second look in OR today. cont abx, ivf. poss tpn tomorrow. 05/17/19: improving. likely extubated today. diurese. tpn. physical therapy. will discuss with hospitalist. 05/18/19: improving. to med/surg floor today. oob to chair. cont tpn. likely clears tomorrow. 05/19/19: continues to improve. ambulate. ice chips. cont lovenox. will d/c hodge, richard, and ngt soon. 05/20/19: Continues to improve. Hodge and NGT removed. Okay for patient to shower today. Encouraged to ambulate in the leal at least 4 times today. Continue current VTE prophylaxis. Clear liquids today, will advance diet slowly over the next few days. Will plan on removing RICHARD tomorrow if output continues to decrease. Recheck labs in am. 05/21/19: Doing well, will ADAT slowly. DC RICHARD drain today. Stop antibiotics today. Plan to stop TPN after this current bag. Recheck labs in am. Central Venous Access Medical Necessity for Access: Hemodynamic Monitoring, IV Access, Medication Administration Time Spent: < 30 min Exam Sepsis Risk: No Definite Risk CARLOS A BREWER MD May 21, 2019 10:37
[2019-05-21] MEDS: FAT EMULSION 20% 250 ML BAG 250 ML IVPB SCH (15:52)
[2019-05-21] MEDS: ENOXAPARIN 40 MG/0.4ML SYR SC SCH (21:29)
[2019-05-21] MEDS: ZOLPIDEM TARTRATE 10 MG TAB PO PRN (21:29)
[2019-05-21] MEDS: NS(*) 0.9% 1000 ML BAG 1,000 ML IV PRN (23:01)
[2019-05-22 05:58] LABS: PLATELET COUNT, AUTOMATED 533 K/uL (150-450)
[2019-05-22 07:12] VITALS: BP 110/69
[2019-05-22] MEDS ORDERED: INSULIN HUM REG 100 UN/ML 3 ML 20 UNIT, MULTIVITAMINS(*) 10 ML VIAL 10 ML, TRACE METALS... IV SCH (07:30)
--- NOTE | 2019-05-22 08:26 | General Surgery Progress Note ---
Subjective Progress Notes Subjective No complaints,feeling better everyday, tolerating diet. Physical Exam Vital Signs Date Time Temp Pulse Resp B/P (MAP) Pulse Ox O2 Delivery O2 Flow Rate FiO2 05/22/19 07:12 98.8 86 18 110/69 (83) 93 Room Air 05/20/19 07:20 1.0 Intake and Output 05/22/19 07:03 Intake Total 2200 ml Output Total 5610 ml Balance -3410 ml Intake Oral 1200 ml IV Total 1000 ml Output Urine Total 3910 ml Stool Total 1690 ml Drainage Total 10 ml General Appearance: Alert, Awake, No Acute Distress, Afebrile Neuro: No Gross deficits ENT: Moist Mucous Membranes Cardiovascular: Normal Rhythm & Peripheral Pulses Respiratory: No Respiratory Distress, Clear to Auscultation GI: Soft and Non-Tender (ileostomy pink and functioning well. Incision healing well.) Extremities: Soft and Non Tender Psych: Alert & Oriented X3, Appropriate Mood & Affect Result Diagram: 05/22/19 0508 05/21/19 0528 Monitor Interpretation: Normal Sinus Rhythm Assessment and Plan Problems: (1) Peritonitis Status: Acute Assessment & Plan: 05/14/195: Pt with massive intra-abd fluid, likely large loculated abscess with pneumoperitoneum with likely perforated viscous vs anastomotic leak. Pt recommended to undergo emergent exploratory laparotomy, possible bowel resection, possible ostomy, possible open abdomen with need for planned second look. Pt and understand he will be admitted to the ICU and likely will be on the ventilator post op. They have been offered transfer to another facility which they both decline. All questions answered, informed consent signed. 05/15/19: continue fluid resuscitation. cont abx until cultures return. start lovenox night. to OR tomorrow for second look and abd closure. 05/16/19: improving. second look in OR today. cont abx, ivf. poss tpn tomorrow. 05/17/19: improving. likely extubated today. diurese. tpn. physical therapy. will discuss with hospitalist. 05/18/19: improving. to med/surg floor today. oob to chair. cont tpn. likely clears tomorrow. 05/19/19: continues to improve. ambulate. ice chips. cont lovenox. will d/c ayesha, richard, and ngt soon. 05/20/19: Continues to improve. Voss and NGT removed. Okay for patient to shower today. Encouraged to ambulate in the leal at least 4 times today. Continue current VTE prophylaxis. Clear liquids today, will advance diet slowly over the next few days. Will plan on removing RICHARD tomorrow if output continues to decrease. Recheck labs in am. 05/21/19: Doing well, will ADAT slowly. DC RICHARD drain today. Stop antibiotics today. Plan to stop TPN after this current bag. Recheck labs in am. 05/22/19: Continues to improve. Tolerating diet. Good urine output. Ileostomy functioning well. TPN and IVF DC'd today. Will leave TLC in place today in case he may need IVF again, but should be able to remove in next day or so as I supect he will be ready for discharge to home. I did educate patient as to the importance of close surveillance on his part of his urine output and ileostomy output after discharge so as not to become dehydrated resulting in TRISHA. Central Venous Access Medical Necessity for Access: Hemodynamic Monitoring, IV Access, Medication Administration Time Spent: < 30 min Exam Sepsis Risk: No Definite Risk CARLOS A BREWER MD May 22, 2019 08:26
--- NOTE | 2019-05-22 08:57 | NUR ---
Physical Therapy Impression The patient has met all PT goals and is safe to d/c home from a mobility stand point when medically appropriate. Matias for transfers with RW and ambulation x500'. Pt demonstrates good step through gait pattern and christos, Matias short distance ambulation with no AD. Pt declined further mobility needs and denies need for RW at d.c, information provided if pt changes his mind. No further PT visits planned. Rec pt continue to ambulation 3-4x/day or more if tolerated. Physical Therapy Goals 1. Mod I bed mobility via log roll technique. 2. Mod I transfers. 3. Mod I gait x 150' with least restrictive device. Patient's Goals
--- NOTE | 2019-05-22 13:33 | Medical Nutrition Therapy ---
Nutrition Anthropometrics Height (Inches): 72.00 Height (Calculated Centimeters: 182.627987 Weight (Pounds): 168 Weight (Calculated Kilograms): 76.459 BMI: 25.7 Leander Nutrition Score: Probably Inadequate Leander Nutrition Risk Score: 19 Dietary Referral Nutrition Risk Factors: Mech. Ventilated Nutrition Risk Comment: Physical Findings Physical Appearance: WNR Skin Appearance Skin Appearance: Edema Edema Location Modifier: Edema Location: Type of Edema: Degree of Edema: Gastrointestinal Symptoms GI Symtoms: Change in Bowel Pattern Tube Present: NG Bowel Sounds: Recent Bowel Pattern: Stool Characteristics: Nutrition/Food History Improving Nutritional Diagnosis Nutritional Risk Acuity 1: TPN/PPN, Peritonitis Past Medical History: Hx of SBO, colon resections Nutritional Acuity: 1-High Nutrition Diagnosis: Increased Nutrient Needs, Altered GI Function Nutrition Etiology: Physiological Causes Nutrition Problem/Etiology/Sym: Peritonitis, bowel perforation, s/p Ileostomy Energy Requirement: 2285 Protein Requirement: 103 ((1.3g/kg for surgery/perotonitis)) Fluid Requirement: 2519 (1mL/kcal) Diet Type: Regular, TPN/PPN Nutrition Intervention: Nutrition support, Incr diet as tolerated Food Likes: Chocolate milk Nutrition Monitoring & Eval Nutrition Goals: Eat 75-100% Meal Nutrition Follow-Up: Good Intake RD Patient Assessment Time: [address] Assessment Type: RD Re-Assessment Patient Nutrition Acuity: 1-High Follow Up Date: May 22, 2019 Nutritional Comment: 05/15/19-Reviewed current and past medical hx. Pertinent for multiple small bowel obstructions and volvulus. Pt found to have pertionitis and just had exploratory lap and ileostomy was placed. Pt currently on vent and sedated recieving only 63 kcal from propofol at 2.5 mL/hg. Recommend TPN for healing s/p laparotomy and hx of post op ileus. Will continue to monitor pt status and need for nutrition support.STAN 05/17/19: Started TPN at 0900, indication for TPN includes bowel perforation and hx of post op ileus. Starting TPN at 42 mL/hr x 24hrs and then advancing to goal rate of 86mL/hr continous. Running lipids IVPB at 20.83mL/hr x 12 hrs/day. Estimated energy needs are 2,285 kcal/day, 103 g Protein. Clinimix will provide 103g Protein (18% of total calories), 413g CHO (61% of total calories). Glucose infusion rate = 3.63 mg/kg/minute. Lipids provide 50g (500 kcal) 22% of total calories. At goal rate of 86 mL/hr meets 100% of estimated energy and protein needs. Will monitor electrolytes, triglycerides, BGs, weight, fluid status and provide recommendations as needed.STAN 05/19 Pt cont on TPN and lipids which meet nutrtional needs. Provided handout for diet with ileostomy and brief review. Pt requested to return and provide education for pt and . Wt up 4kg from admit. Pre-alb low at 3.4, alb low at 2, CRP cont elevated at 14.1. Will cont to monitor. SHAYY 05/20 RD followed up to provided education to pt and family. Family and pt verbalized understanding, and RD left them with a handout and contact information to schedule an outpatient follow up if needed. -AKG 05/22/19: TPN discontinued. Pt appears to be tolerating regular diet, consumed 100% x 3 meals. Hypoactive bowel sounds, tender abdomen per RN shift assessment. Regular output from the ileostomy, reported green output. Output from ileostomy averaging ~1379mL/day. Recieving NS at 30mL/hr. Will continue to monitor output, tolerance to diet, and need for additional education.CHRISTOPHER QUEVEDO May 22, 2019 13:33
[2019-05-22 15:15] VITALS: BP 108/72
[2019-05-22 19:35] VITALS: BP 111/74
[2019-05-22] MEDS: ENOXAPARIN 40 MG/0.4ML SYR SC SCH (21:35)
[2019-05-22] MEDS: ZOLPIDEM TARTRATE 10 MG TAB PO PRN (21:35)
[2019-05-23 07:22] VITALS: BP 113/74
[2019-05-23 11:45] VITALS: BP 112/79
--- NOTE | 2019-05-23 14:50 | Hospitalist Depart ---
Discharge Summary Reason for Hosp/Final Diag: (1) Peritonitis Status: Acute Hospital Course & Plan: 05/14/192044: Pt with massive intra-abd fluid, likely large loculated abscess with pneumoperitoneum with likely perforated viscous vs anastomotic leak. Pt recommended to undergo emergent exploratory laparotomy, possible bowel resection, possible ostomy, possible open abdomen with need for planned second look. Pt and understand he will be admitted to the ICU and likely will be on the ventilator post op. They have been offered transfer to another facility which they both decline. All questions answered, informed consent signed. 05/15/19: continue fluid resuscitation. cont abx until cultures return. start lovenox night. to OR tomorrow for second look and abd closure. 05/16/19: improving. second look in OR today. cont abx, ivf. poss tpn tomorrow. 05/17/19: improving. likely extubated today. diurese. tpn. physical therapy. will discuss with hospitalist. 05/18/19: improving. to med/surg floor today. oob to chair. cont tpn. likely clears tomorrow. 05/19/19: continues to improve. ambulate. ice chips. cont lovenox. will d/c hodge, richard, and ngt soon. 05/20/19: Continues to improve. Hodge and NGT removed. Okay for patient to shower today. Encouraged to ambulate in the leal at least 4 times today. Continue current VTE prophylaxis. Clear liquids today, will advance diet slowly over the next few days. Will plan on removing RICHARD tomorrow if output continues to decrease. Recheck labs in am. 05/21/19: Doing well, will ADAT slowly. DC RICHARD drain today. Stop antibiotics today. Plan to stop TPN after this current bag. Recheck labs in am. 05/22/19: Continues to improve. Tolerating diet. Good urine output. Ileostomy functioning well. TPN and IVF DC'd today. Will leave TLC in place today in case he may need IVF again, but should be able to remove in next day or so as I supect he will be ready for discharge to home. I did educate patient as to the importance of close surveillance on his part of his urine output and ileostomy output after discharge so as not to become dehydrated resulting in TRISHA. 05/23/19: doing well. ostomy output getting thicker. fadi po. good uop. stoma pink. inc c/d/i. d/c home. f/u dr. gisela snyder 1 wk. Departure Weight (Pounds): 154 Weight (Ounces): 3.0 Result Diagram: 05/22/19 0508 05/21/19 0528 Condition: Improved Discharge Instructions Home Meds Active Scripts Pantoprazole Sodium (PANTOPRAZOLE SODIUM) 40 Mg Tablet.dr, 1 TAB PO DAILY, #30 CAP 2 Refills Prov:BHARATH SNYDER 05/10/19 Zolpidem Tartrate (AMBIEN) 10 Mg Tablet, 1 TAB PO QHS PRN for INSOMNIA, #20 TAB Prov:BHARATH SNYDER 05/10/19 Tramadol Hcl (TRAMADOL HCL) 50 Mg Tablet, 50 MG PO Q6H PRN for PAIN, #20 TAB Prov:BHARATH SNYDER 04/26/19 Reported Medications Lactobacillus Combination No.4 (PROBIOTIC) 1 Each Capsule, 1 EACH PO DAILY, CAPSULE 05/15/19 Multivitamin (MULTIVITAMINS) 1 Each Capsule, 1 EACH PO QDAY, CAPSULE 03/01/19 Diet: Regular Activity: No Heavy Lifting Special Instructions: no lifting more than 15 lbs. ok to shower. f/u dr. gisela snyder 1 wk. Venous Thromboembolism Antithrombotics Is Pt On Any Antithrombotics?: No BHARATH SNYDER May 23, 2019 14:50
== END 2019-05-23 15:50 | disposition home or self-care (01) | DRG 329 ==
LOC: ER 18:10 → OR 20:34 → ICU 05-15 00:21 → MED 05-18 11:08
PROVIDERS: ADMIT Surgery; ATTEND Surgery
PROC: 0D1B0Z4 Bypass Ileum to Cutaneous, Open Approach (ICD-10-PCS; principal; 2019-05-15)
PROC: 0DBN0ZZ Excision of Sigmoid Colon, Open Approach (ICD-10-PCS; 2019-05-15)
PROC: 3E1M38Z Irrigation of Peritoneal Cavity using Irrigating Substance, Percutaneous Approach (ICD-10-PCS; 2019-05-15)
PROC: 3E0336Z Introduction of Nutritional Substance into Peripheral Vein, Percutaneous Approach (ICD-10-PCS; 2019-05-15)
DX: K65.1 Peritoneal abscess (principal); K56.2 Volvulus; J96.00 Acute respiratory failure, unspecified whether with hypoxia or hypercapnia; I95.81 Postprocedural hypotension; K45.8 Other specified abdominal hernia without obstruction or gangrene
CPT/HCPCS: 36415; 36416; 36600; 71045; 74177; 81001; 82040; 82150; 82247; 82310; 82374; 82435; 82565; 82803; 82947; 82948; 83605; 83690; 83735; 84075; 84100; 84132; 84134; 84155; 84295; 84450; 84460; 84520; 85025; 85610; 86140; 86850; 86900; 86901; 87070; 87071; 87073; 87077; 87176; 87205; 87252; 88307; 93005; 94002; 94003; 94770; 96361; 96365; 96367; 96375; 96376; 97162; 99285; A4216; C1758; C9113; J0131; J1170; J1642; J1650; J1815; J1885; J1940; J2250; J2270; J2405; J2543; J2704; J2997; J3010; J3480; J3490; J7030; J7040; J7050; J7060; Q9967; S0028